=== PATIENT | female | born 1940 | race Caucasian/White ===

== ENCOUNTER 2023-07-18 14:37 | Inpatient (IN) ==
[2023-07-18] MEDS ORDERED: SODIUM CHLORIDE 0.9% 500 ML IV STA (14:42)
--- NOTE | 2023-07-18 14:42 | ED Triage Note ---
Date of Service July 18, 2023 Provider in Triage Author: Verónica Mathis History of Present Illness This patient was briefly evaluated while in triage. An abbreviated physical exam was performed. This patient is a 82-year-old Female who presents to the ED for evaluation of "she can't breathe." Daughter states symptoms started this morning. She had Covid-19 end of May. 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 Has been using these medications without difficulty. Did get RSV vaccine last Saturday. Pt. is visiting from [place]. About noon, started having worsening cough making it difficult to breathe and "get oxygen in." C/o chest heaviness and "inability to breathe" Physical Exam VITALS: Vitals are noted on the nurse's note and reviewed by myself. GENERAL: This is an 82 year old female, in no acute distress, nondiaphoretic, well-developed well-nourished. SKIN: No obvious rashes, edema, erythema HEAD: Normocephalic atraumatic. EYES: Conjunctivae without injection, sclerae without icterus. NECK: No JVD. LUNGS: No retractions or accessory muscle use. MUSCULOSKELETAL: Normal gait. NEURO: Patient was alert and oriented to person place and time. No focal neurological deficits. Initial orders for labs and / or imaging were placed and patient was placed in the waiting area until a bed is available. Please see further documentation for the full ED course. MDM / Impression Impression Impression: Hypoxia
[2023-07-18 15:16] LABS: Base Excess VBG 3.2 mEq/L; HCO3 VBG 31 mmol/L; Oxygen Saturation VBG < 60.0 %; PCO2 VBG 58 mmHg (38-50); PO2 VBG 28 mmHg; pH VBG 7.33 (7.36-7.41)
[2023-07-18 15:24] LABS: Basophils # (auto) 0.08 K/uL (0.00-0.20); Basophils % (auto) 0.8 %; Eosinophils # (auto) 0.57 K/uL (0.00-0.50); Eosinophils % (auto) 5.6 %; Hematocrit (blood only) 40.4 % (37.0-47.0); Hemoglobin 13.4 g/dl (12.0-16.0); Immature Granulocytes # (auto) 0.03 K/uL (0.01-0.20); Immature Granulocytes % (auto) 0.3 %; Lymphocytes # (auto) 1.72 K/uL (1.20-3.40); Lymphocytes % (auto) 16.8 %; Mean Corpuscular Hemoglobin 31.5 pg (25.0-34.0); Mean Corpuscular Hgb Conc 33.2 g/dL (32.0-36.0); Mean Corpuscular Volume 95.1 fL (80.0-100.0); Mean Platelet Volume 12.2 fL (9.4-12.4); Monocytes # (auto) 0.64 K/uL (0.11-0.59); Monocytes % (auto) 6.3 %; Neutrophils # (auto) 7.17 K/uL (1.40-6.50); Neutrophils % (auto) 70.2 %; Platelet Count 288 K/uL (130-400); RDW Coefficient of Variation 14.5 % (11.5-14.5); RDW Standard Deviation 51.1 fL (36.4-46.3); Red Blood Count 4.25 M/uL (4.20-5.40); White Blood Count 10.21 K/ul (4.8-10.8)
[2023-07-18 15:40] LABS: Alanine Aminotransferase 14 U/L (7-52); Albumin Globulin Ratio 1.2 (0.9-2); Albumin Level 4.2 gm/dl (3.4-5.0); Alkaline Phosphatase 91 U/L (34-104); Anion Gap 6 (3-11); Aspartate Aminotransferase 20 U/L (13-39); BUN Creatinine Ratio 29.6 (10-20); Bilirubin,Total 0.8 mg/dl (0.2-1.0); Blood Urea Nitrogen 21 mg/dl (6-23); Calcium 9.4 mg/dl (8.6-10.3); Carbon Dioxide 30 mmol/L (21-32); Chloride 105 mmol/L (98-107); Est GFR (African American) 90.7 ml/min; Est GFR (Non-African American) 78.2 ml/min; Globulin 3.4 gm/dl (2.5-4.0); Glucose 203 mg/dl (70-99(Fasting)); Magnesium 1.8 mg/dl (1.7-2.4); Sodium 141 mmol/L (136-145); Total Protein 7.6 gm/dl (6.0-8.3)
[2023-07-18 15:46] LABS: Troponin I High Sensitivity 5.2 pg/ml (0-14)
[2023-07-18] MEDS ORDERED: OPTIRAY 320 125ml IV ONE (15:51)
[2023-07-18 15:53] LABS: Partial Thromboplastin Time 27 Seconds (21-31); Prothrombin Time 10.5 Seconds (9.0-12.0)
[2023-07-18 16:07] LABS: Adenovirus PCR Not Detected (NotDetected); Bordetella parapertussis PCR Not Detected (NotDetected); Bordetella pertussis PCR Not Detected (NotDetected); Chlamydia pneumoniae PCR Not Detected (NotDetected); Coronavirus 229E PCR Not Detected (NotDetected); Coronavirus CoV-2 (COVID19)PCR Not Detected (NotDetected); Coronavirus HKU1 PCR Not Detected (NotDetected); Coronavirus NL63 PCR Not Detected (NotDetected); Coronavirus OC43PCR Not Detected (NotDetected); Human Metapneumovirus PCR Not Detected (NotDetected); Influenza A PCR Not Detected (NotDetected); Influenza B PCR Not Detected (NotDetected); Mycoplasma pneumoniae PCR Not Detected (NotDetected); Parainfluenza Virus 1 PCR Not Detected (NotDetected); Parainfluenza Virus 2 PCR Not Detected (NotDetected); Parainfluenza Virus 3 PCR Not Detected (NotDetected); Parainfluenza Virus 4 PCR Not Detected (NotDetected); Respiratory Syncytial VirusPCR Not Detected (NotDetected); Rhinovirus/Enterovirus PCR Not Detected (NotDetected)
--- NOTE | 2023-07-18 16:15 | CT Scan Report ---
CT ANGIOGRAM OF THE CHEST CLINICAL HISTORY: Dyspnea. Recent travel. COMPARISON STUDY: No priors. TECHNIQUE: Following the IV administration of 117 cc of Optiray 320, CT angiogram of the chest was pe rformed from the upper abdomen to the thoracic inlet utilizing the pulmonary embolus protocol. Images are reviewed in the axial, sagittal, and coronal planes. 3-D MIPS images are created and assessed. I V contrast was administered without complication. A dose lowering technique was utilized adhering to the principles of ALARA. The examination is compromised by motion artifact. CT DOSE: 800.32 mGy.cm FINDINGS: Thyroid: Imaged portions of the thyroid gland are normal in size and attenuation. Thoracic aorta: There is mild atherosclerotic calcification of the thoracic aorta, which is normal in caliber and demonstrates standard 3-vessel arch anatomy. No dissection is seen. Pulmonary vasculature: The pulmonary trunk is normal in caliber. There are no filling defects identif ied in main, lobar, or segmental pulmonary branches to suggest pulmonary embolus. Evaluation of the p eripheral branches is degraded by motion artifact. Heart: The heart is enlarged and without pericardial effusion. Lungs and pleural spaces: Evaluation of the lung parenchyma is significantly degraded by motion artif act. The trachea and central airways appear clear. There is no lobar consolidation or pleural effusio n. There is mild bronchiectasis in the right middle lobe with foci of mucus plugging. Foci of tree-in -bud nodularity with groundglass opacities are seen throughout the right lung, greatest in the upper and middle lobes. Milder similar-appearing tree-in-bud opacities are noted in the lingula. A 12 mm ov oid nodular focus in the right middle lobe on image #105 likely represents an impacted bronchus. A 5 mm nodular focus in the right upper lobe as seen on image #157. Mild parenchymal scarring/fibrosis is seen in the lingula. Mediastinum: There is no mediastinal lymphadenopathy. [place]: Clear. Axillae: There is no axillary lymphadenopathy. Upper abdomen: There is a small hiatal hernia. Partially visualized upper abdominal viscera is otherw ise within normal limits. Skeletal structures: The skeletal structures are osteopenic. No lytic or blastic bony lesions are see n. Degenerative change is noted in the shoulders and spine. IMPRESSION: 1. Motion compromised examination. 2. There is no evidence of pulmonary embolus in the main, lobar, or segmental pulmonary arteries. 3. Cardiomegaly 4. There is no lobar consolidation or pleural effusion. 5. There are numerous foci of tree-in-bud nodularity throughout the right lung as above with mild dwight undglass change. There are additional chronic appearing findings in the right middle lobe and lingula . The appearance favors a mild infectious/inflammatory pneumonitis. Some of this likely represents a chronic process such as atypical mycobacterial infection (GARRISON). Outpatient follow-up with pulmonology is recommended, as is a repeat chest CT in 3-4 months time to document resolution. 6. A 12 mm ovoid nodular structure in the right middle lobe likely represents an impacted bronchus. T his should also be recessed at follow-up. 7. Additional findings as above. ACT 112: Negative or not required by law. Electronically signed by: Luke Del Angel M.D. 07/18/2023 4:14 PM
[2023-07-18 16:30] LABS: Appearance Urine Clear (Clear); Bilirubin Urine Negative (Negative); Blood Urine Negative (Negative); Color Urine Yellow; Glucose Urine UA Negative (Negative); Ketones Urine Negative (Negative); Leukocyte Esterase Urine Negative (Negative); Nitrite Urine Negative (Negative); Protein Urine Negative (Negative); Specific Gravity Urine 1.025 (1.000-1.030); Urobilinogen Urine Negative (Negative); pH Urine 5.5 (4.5-7.5)
--- NOTE | 2023-07-18 16:38 | XRay Report ---
SINGLE VIEW CHEST CLINICAL HISTORY: Dyspnea FINDINGS: An AP, portable, upright chest radiograph is correlated with chest CT performed the same da y 07/18/2023. The heart is enlarged noting atherosclerotic calcification of the thoracic aorta. There is prominence of the pulmonary vasculature. There is elevation right hemidiaphragm with bibasilar op acities. No large pleural effusion or pneumothorax is seen. The skeletal structures are osteopenic. T he bony thorax is grossly intact. IMPRESSION: 1. Cardiomegaly with prominence of the pulmonary vasculature. Correlate clinically for evidence of mi ld fluid overload/congestive change. 2. Bibasilar airspace opacities as above. Pulmonary parenchymal findings were much better assessed on today's CT scan. ACT 112: Negative or not required by law. Electronically signed by: Luke Del Angel M.D. 07/18/2023 4:37 PM
[2023-07-18] MEDS ORDERED: methylPREDNISolone 125 MG/2 ML VIAL IV STA (16:40)
[2023-07-18] MEDS ORDERED: ALBUT/IPRATROP 3MG/0.5MG NEB 3 ML VIAL NEB STA ×2 (16:40→19:14)
--- NOTE | 2023-07-18 16:42 | Emergency Department Note ---
Impression & Plan Hypoxia ADMIT ED Provider Note HPI: History obtained from patient. The patient is a 82-year-old female who presents emergency department the chief complaint of cough and shortness of breath. Patient states that her symptoms developed very acutely today sometime around lunch. Patient developed some wheezing and cough. She attempted to use her albuterol inhaler at home without relief. Patient states she also developed some chest discomfort that seem to worsen with cough and is substernal in nature. On arrival here to the ED the patient is hypertensive, she was with borderline oxygen saturations in the low 90s and was placed on 2 L nasal cannula oxygen with good improvement. On my initial assessment the patient exhibits a harsh dry cough, states she does have some mild chest discomfort, she exhibits bilateral expiratory wheezing on my exam. ROS: - Per HPI Differential Diagnosis: Acute bacterial pneumonia, COPD exacerbation, acute bronchospasm, pulmonary embolism, aortic dissection, acute coronary syndrome, amongst other potential pathologies. *Outpatient medications and allergy history reviewed. PE: General: Alert HEENT: Normocephalic, trachea midline Eyes: Extraocular eye movement is intact, no scleral erythema Pulmonary: Clear to auscultation bilaterally, no wheezing Cardio: Regular rate and rhythm GI: Abdomen is soft to palpation : No suprapubic tenderness MSK: No evidence of trauma or malformation of the extremities, no edema Skin: No evidence of rash Neuro: Alert, no focal deficits Psychiatric: Cooperative INDEPENDENT INTERPRETATIONS: desk monitor: (As interpreted by myself): - An order was placed for continuous cardiac monitoring - Patient was noted to be in sinus rhythm with a rate of 108 EKG: (As interpreted by myself): Rate: 92 Rhythm: Normal sinus rhythm Intervals: Within normal limits ST changes: No ST elevation Time: 1502 Chest x-ray: (As interpreted by myself): -Bilateral airspace opacities Interventions provided in ED: -IV fluid bolus, IV hydralazine, DuoNeb breathing treatment, IV Solu-Medrol, IV ceftriaxone, IV azithromycin Medical Decision Making: IV was established and lab work obtained, patient was placed on clinical research monitor. Lab work shows no leukocytosis, hemoglobin is normal, platelet count is normal, venous blood gas was obtained and shows acidotic pH is 7.33, there is slight elevation in pCO2 of 58. CMP does not show any critical findings, troponin is negative, BNP is within normal limits. Chest x-ray shows bilateral airspace opacities, CT angiography of the chest was obtained from triage that shows no evidence of any pulmonary embolism, there is an apparent infectious process in the right middle lobe of the lung. Blood cultures were ordered, patient was given IV ceftriaxone and IV azithromycin here in the ED. She was noted to be hypoxic at various times down to 88% on room air and therefore was placed on nasal cannula oxygen with good improvement. Patient has been hypertensive here in the ED at times well above 200 systolic and therefore was given a dose of IV hydralazine with improvement into the 170s systolic. On my reassessment following DuoNeb breathing treatment and IV Solu- Medrol the patient's wheezing is improved from previous. Given the patient's hypoxia, case was discussed with the on-call hospitalist service, Flaco Ferreira PA-C, as well as Dr. Lala, and the patient was placed for admission in stable condition. Consultants/Discussions held with other healthcare providers: -Hospitalist, Dr. Lala Disposition discussion held by myself with: -Patient and daughter is at the bedside * CRITICAL CARE TIME: ( 43 ) minutes -Stabilization of hypoxia with oxygen saturation at 88% on room air requiring supplemental oxygen for correction, time spent at the bedside, interpretation of EKG and diagnostic studies, discussion with other healthcare providers and arrangement of admission Diagnosis: 1. Hypoxia, acute 2. Acute bronchospasm 3. Hypercarbic respiratory failure with hypoxia 4. Pneumonia, right middle lobe, acute 5. Hypertensive urgency, acute Disposition: Admission Beau Oliveira DO Emergency Medicine Past Med/Surg History Social History Smoking Status: Never smoker Preferred Language: Zimbabwean Feels Safe at Home: Yes Allergies Allergies Allergy/AdvReac Type Severity Reaction Status Date / Time piroxicam Allergy Severe Angioedema Unverified 07/18/23 17:59 acetaminophen [From Percocet] AdvReac Severe Hallucinati Unverified 07/18/23 17:59 ng/Loopy oxycodone [From Percocet] AdvReac Severe Hallucinati Unverified 07/18/23 17:59 ng/Loopy Home Meds Home Medications Medication Instructions Recorded Confirmed atorvastatin 10 mg tablet 10 mg PO QAM 07/18/23 07/18/23 cholecalciferol (vitamin D3) 50 50 mcg PO QAM 07/18/23 07/18/23 mcg (2,000 unit) tablet (Vitamin D3) coenzyme Q10 100 mg capsule (Co 100 mg PO QAM 07/18/23 07/18/23 Q-10) insulin NPH isoph U-100 human 100 0 unit subcut BID 07/18/23 07/18/23 unit/mL subcutaneous suspension (Humulin N NPH U-100 Insulin (isophane susp)) levothyroxine 88 mcg tablet 88 mcg PO HS 07/18/23 07/18/23 losartan 25 mg tablet 25 mg PO QAM 07/18/23 07/18/23 modafinil 200 mg tablet 200 mg PO DAILY PRN To stay awake 07/18/23 07/18/23 Results & Data (ED) Vital Signs Vital Signs - 24 hr 07/18/23 14:40 07/18/23 16:12 07/18/23 16:13 Temperature 36.7 C Temperature Source Temporal Artery Scan Pulse Rate 96 H 108 H 108 H Pulse Rate from SpO2 Sensor 107 H Respiratory Rate 22 34 H Respiratory Effort / Characteristics Non-Labored Spontaneous Respiratory Depth Normal Blood Pressure 195/96 H Blood Pressure [Left Arm] Blood Pressure Mean 129 Blood Pressure Mean [Left Arm] Blood Pressure Position Sitting Pulse Oximetry 91 93 Oxygen Delivery Method Room Air Oxygen Flow Rate Sepsis Recent Fever Within 48 Hours No Sepsis New/Unexplained Change in Mental Status No Sepsis Action Taken by Nursing No Action Required Oxygen Flow Rate - Titration Pulse Oximetry Post Tiitration 07/18/23 16:15 07/18/23 16:15 07/18/23 16:15 Temperature Temperature Source Pulse Rate 102 H 103 H Pulse Rate from SpO2 Sensor 104 H Respiratory Rate 15 23 Respiratory Effort / Characteristics Respiratory Depth Blood Pressure 208/121 H Blood Pressure [Left Arm] Blood Pressure Mean 157 Blood Pressure Mean [Left Arm] Blood Pressure Position Pulse Oximetry 95 93 Oxygen Delivery Method Nasal Cannula Oxygen Flow Rate 2 Sepsis Recent Fever Within 48 Hours Sepsis New/Unexplained Change in Mental Status Sepsis Action Taken by Nursing Oxygen Flow Rate - Titration Pulse Oximetry Post Tiitration 07/18/23 16:20 07/18/23 16:30 07/18/23 16:30 Temperature Temperature Source Pulse Rate 102 H 101 H Pulse Rate from SpO2 Sensor 102 H 101 H Respiratory Rate 35 H 39 H Respiratory Effort / Characteristics Respiratory Depth Blood Pressure Blood Pressure [Left Arm] 195/116 H Blood Pressure Mean Blood Pressure Mean [Left Arm] 142 Blood Pressure Position Pulse Oximetry 94 92 92 Oxygen Delivery Method Nasal Cannula Oxygen Flow Rate 2 Sepsis Recent Fever Within 48 Hours Sepsis New/Unexplained Change in Mental Status Sepsis Action Taken by Nursing Oxygen Flow Rate - Titration Pulse Oximetry Post Tiitration 07/18/23 16:30 07/18/23 16:40 07/18/23 16:45 Temperature Temperature Source Pulse Rate 105 H 102 H Pulse Rate from SpO2 Sensor 105 H 102 H Respiratory Rate 27 H 34 H Respiratory Effort / Characteristics Respiratory Depth Blood Pressure 195/116 H Blood Pressure [Left Arm] Blood Pressure Mean 138 Blood Pressure Mean [Left Arm] Blood Pressure Position Pulse Oximetry 93 91 Oxygen Delivery Method Nasal Cannula Oxygen Flow Rate 2 Sepsis Recent Fever Within 48 Hours Sepsis New/Unexplained Change in Mental Status Sepsis Action Taken by Nursing Oxygen Flow Rate - Titration Pulse Oximetry Post Tiitration 07/18/23 16:45 07/18/23 16:50 07/18/23 17:00 Temperature Temperature Source Pulse Rate 95 H Pulse Rate from SpO2 Sensor 104 H 95 H Respiratory Rate 30 H Respiratory Effort / Characteristics Respiratory Depth Blood Pressure 214/131 H Blood Pressure [Left Arm] Blood Pressure Mean 149 Blood Pressure Mean [Left Arm] Blood Pressure Position Pulse Oximetry 88 L 97 Oxygen Delivery Method Room Air Nebulizer Oxygen Flow Rate Sepsis Recent Fever Within 48 Hours Sepsis New/Unexplained Change in Mental Status Sepsis Action Taken by Nursing Oxygen Flow Rate - Titration Pulse Oximetry Post Tiitration 07/18/23 17:10 07/18/23 17:10 Temperature Temperature Source Pulse Rate 101 H Pulse Rate from SpO2 Sensor 100 H Respiratory Rate 28 H Respiratory Effort / Characteristics Respiratory Depth Blood Pressure Blood Pressure [Left Arm] Blood Pressure Mean Blood Pressure Mean [Left Arm] Blood Pressure Position Pulse Oximetry 88 L 90 Oxygen Delivery Method Nasal Cannula Nasal Cannula Oxygen Flow Rate 0 2 Sepsis Recent Fever Within 48 Hours Sepsis New/Unexplained Change in Mental Status Sepsis Action Taken by Nursing Oxygen Flow Rate - Titration 2 Pulse Oximetry Post Tiitration 92 Laboratory Data 07/18/23 14:53 07/18/23 14:53 Lab Results 07/18/23 07/18/23 07/18/23 Range/Units 14:53 15:02 15:08 WBC 10.21 (4.8-10.8) K/ul RBC 4.25 (4.20-5.40) M/uL Hgb 13.4 (12.0-16.0) g/dl Hct 40.4 (37.0-47.0) % MCV 95.1 (80.0-100.0) fL MCH 31.5 (25.0-34.0) pg MCHC 33.2 (32.0-36.0) g/dL RDW Std Deviation 51.1 H (36.4-46.3) fL RDW Coeff of Norma 14.5 (11.5-14.5) % Plt Count 288 (130-400) K/uL MPV 12.2 (9.4-12.4) fL Immature Gran % (Auto) 0.3 % Neut % (Auto) 70.2 % Lymph % (Auto) 16.8 % Forrest % (Auto) 6.3 % Eos % (Auto) 5.6 % Baso % (Auto) 0.8 % Neut # (Auto) 7.17 H (1.40-6.50) K/uL Lymph # (Auto) 1.72 (1.20-3.40) K/uL Forrest # (Auto) 0.64 H (0.11-0.59) K/uL Eos # (Auto) 0.57 H (0.00-0.50) K/uL Baso # (Auto) 0.08 (0.00-0.20) K/uL Immature Gran # (Auto) 0.03 (0.01-0.20) K/uL PT 10.5 (9.0-12.0) Seconds INR 1.0 (0.9-1.1) APTT 27 (21-31) Seconds PTT Ratio 1.0 VBG pH 7.33 L (7.36-7.41) VBG pCO2 58 H (38-50) mmHg VBG pO2 28 mmHg VBG HCO3 31 mmol/L VBG O2 Saturation < 60.0 % VBG Base Excess 3.2 mEq/L Sodium 141 (136-145) mmol/L Potassium 4.0 (3.5-5.1) mmol/L Chloride 105 (98-107) mmol/L Carbon Dioxide 30 (21-32) mmol/L Anion Gap 6 (3-11) BUN 21 (6-23) mg/dl Creatinine 0.71 (0.6-1.2) mg/dl Est Cr Clr Drug Dosing Not Reportable Est GFR ( Amer) 90.7 ml/min Est GFR (Non-Af Amer) 78.2 ml/min BUN/Creatinine Ratio 29.6 H (10-20) Glucose 203 H (70-99(Fasting)) mg/dl Lactate 1.3 (0.4-2.0) mmol/L Calcium 9.4 (8.6-10.3) mg/dl Magnesium 1.8 (1.7-2.4) mg/dl Total Bilirubin 0.8 (0.2-1.0) mg/dl AST 20 (13-39) U/L ALT 14 (7-52) U/L Alkaline Phosphatase 91 (34-104) U/L Troponin I High Sens 5.2 (0-14) pg/ml B-Natriuretic Peptide 28 (0-100) pg/ml Total Protein 7.6 (6.0-8.3) gm/dl Albumin 4.2 (3.4-5.0) gm/dl Globulin 3.4 (2.5-4.0) gm/dl Albumin/Globulin Ratio 1.2 (0.9-2) Urine Color Urine Appearance (Clear) Urine pH (4.5-7.5) Ur Specific Paradis (1.000-1.030) Urine Protein (Negative) Urine Glucose (UA) (Negative) Urine Ketones (Negative) Urine Blood (Negative) Urine Nitrite (Negative) Urine Bilirubin (Negative) Urine Urobilinogen (Negative) Ur Leukocyte Esterase (Negative) Adenovirus (PCR) Not Detected (NotDetected) B. pertussis DNA (PCR) Not Detected (NotDetected) B.parapertussis DNA PCR Not Detected (NotDetected) C. pneumoniae DNA (PCR) Not Detected (NotDetected) Coronavirus OC43 (PCR) Not Detected (NotDetected) Coronavirus HKU1 (PCR) Not Detected (NotDetected) Coronavirus 229E (PCR) Not Detected (NotDetected) SARS-CoV-2 (PCR) Not Detected (NotDetected) Coronavirus NL63 (PCR) Not Detected (NotDetected) Human Metapneumovir PCR Not Detected (NotDetected) Influenza Type A (PCR) Not Detected (NotDetected) Influenza Type B (PCR) Not Detected (NotDetected) M. pneumoniae (PCR) Not Detected (NotDetected) Parainfluenza 1 (PCR) Not Detected (NotDetected) Parainfluenza 2 (PCR) Not Detected (NotDetected) Parainfluenza 3 (PCR) Not Detected (NotDetected) Parainfluenza 4 (PCR) Not Detected (NotDetected) RSV (PCR) Not Detected (NotDetected) Entero/Rhino (PCR) Not Detected (NotDetected) 07/18/23 Range/Units Unknown WBC (4.8-10.8) K/ul RBC (4.20-5.40) M/uL Hgb (12.0-16.0) g/dl Hct (37.0-47.0) % MCV (80.0-100.0) fL MCH (25.0-34.0) pg MCHC (32.0-36.0) g/dL RDW Std Deviation (36.4-46.3) fL RDW Coeff of Norma (11.5-14.5) % Plt Count (130-400) K/uL MPV (9.4-12.4) fL Immature Gran % (Auto) % Neut % (Auto) % Lymph % (Auto) % Forrest % (Auto) % Eos % (Auto) % Baso % (Auto) % Neut # (Auto) (1.40-6.50) K/uL Lymph # (Auto) (1.20-3.40) K/uL Forrest # (Auto) (0.11-0.59) K/uL Eos # (Auto) (0.00-0.50) K/uL Baso # (Auto) (0.00-0.20) K/uL Immature Gran # (Auto) (0.01-0.20) K/uL PT (9.0-12.0) Seconds INR (0.9-1.1) APTT (21-31) Seconds PTT Ratio VBG pH (7.36-7.41) VBG pCO2 (38-50) mmHg VBG pO2 mmHg VBG HCO3 mmol/L VBG O2 Saturation % VBG Base Excess mEq/L Sodium (136-145) mmol/L Potassium (3.5-5.1) mmol/L Chloride (98-107) mmol/L Carbon Dioxide (21-32) mmol/L Anion Gap (3-11) BUN (6-23) mg/dl Creatinine (0.6-1.2) mg/dl Est Cr Clr Drug Dosing Est GFR ( Amer) ml/min Est GFR (Non-Af Amer) ml/min BUN/Creatinine Ratio (10-20) Glucose (70-99(Fasting)) mg/dl Lactate (0.4-2.0) mmol/L Calcium (8.6-10.3) mg/dl Magnesium (1.7-2.4) mg/dl Total Bilirubin (0.2-1.0) mg/dl AST (13-39) U/L ALT (7-52) U/L Alkaline Phosphatase (34-104) U/L Troponin I High Sens (0-14) pg/ml B-Natriuretic Peptide (0-100) pg/ml Total Protein (6.0-8.3) gm/dl Albumin (3.4-5.0) gm/dl Globulin (2.5-4.0) gm/dl Albumin/Globulin Ratio (0.9-2) Urine Color Yellow Urine Appearance Clear (Clear) Urine pH 5.5 (4.5-7.5) Ur Specific Paradis 1.025 (1.000-1.030) Urine Protein Negative (Negative) Urine Glucose (UA) Negative (Negative) Urine Ketones Negative (Negative) Urine Blood Negative (Negative) Urine Nitrite Negative (Negative) Urine Bilirubin Negative (Negative) Urine Urobilinogen Negative (Negative) Ur Leukocyte Esterase Negative (Negative) Adenovirus (PCR) (NotDetected) B. pertussis DNA (PCR) (NotDetected) B.parapertussis DNA PCR (NotDetected) C. pneumoniae DNA (PCR) (NotDetected) Coronavirus OC43 (PCR) (NotDetected) Coronavirus HKU1 (PCR) (NotDetected) Coronavirus 229E (PCR) (NotDetected) SARS-CoV-2 (PCR) (NotDetected) Coronavirus NL63 (PCR) (NotDetected) Human Metapneumovir PCR (NotDetected) Influenza Type A (PCR) (NotDetected) Influenza Type B (PCR) (NotDetected) M. pneumoniae (PCR) (NotDetected) Parainfluenza 1 (PCR) (NotDetected) Parainfluenza 2 (PCR) (NotDetected) Parainfluenza 3 (PCR) (NotDetected) Parainfluenza 4 (PCR) (NotDetected) RSV (PCR) (NotDetected) Entero/Rhino (PCR) (NotDetected) Administered Medications Discontinued Medications Albuterol (Albut/Ipratrop 3mg/0.5mg Neb 3 Ml Vial) 3 ml NEB NOW STA; Protocol Stop: 07/18/23 16:41 Last Admin: 07/18/23 16:51 Dose: 3 ml Documented By: ACC Hydralazine HCl (Hydralazine Hcl 20 Mg/Ml Vial) 10 mg IV NOW STA Stop: 07/18/23 17:19 Last Admin: 07/18/23 17:28 Dose: 10 mg Documented By: LKD Sodium Chloride (Nss) 500 mls @ 999 mls/hr IV .Q31M STA Stop: 07/18/23 15:12 Last Infusion: 07/18/23 15:35 Dose: Infused Documented By: Admin: 07/18/23 15:00 Dose: 999 mls/hr Documented By: LCD Ceftriaxone Sodium (Rocephin) 2,000 mg in 50 mls @ 100 mls/hr IV NOW STA Stop: 07/18/23 17:49 Last Infusion: 07/18/23 18:41 Dose: Infused Documented By: Admin: 07/18/23 17:29 Dose: 100 mls/hr Documented By: LKD Azithromycin 500 mg/ Dextrose 255 mls @ 125 mls/hr IV ONE ONE Stop: 07/18/23 19:22 Last Admin: 07/18/23 18:14 Dose: 125 mls/hr Documented By: ACC Ioversol (Optiray 320 125ml) 117 ml IV ONCE ONE Stop: 07/18/23 15:52 Last Admin: 07/18/23 15:51 Dose: 117 ml Documented By: ARAM Methylprednisolone (Methylprednisolone 125 Mg/2 Ml Vial) 125 mg IV NOW STA Stop: 07/18/23 16:41 Last Admin: 07/18/23 16:51 Dose: 125 mg Documented By: ACC Imaging Data Radiologist's Impression: Chest CTA 07/18/23 14:42 CT ANGIOGRAM OF THE CHEST CLINICAL HISTORY: Dyspnea. Recent travel. COMPARISON STUDY: No priors. TECHNIQUE: Following the IV administration of 117 cc of Optiray 320, CT angiogram of the chest was performed from the upper abdomen to the thoracic inlet utilizing the pulmonary embolus protocol. Images are reviewed in the axial, sagittal, and coronal planes. 3-D MIPS images are created and assessed. IV contrast was administered without complication. A dose lowering technique was utilized adhering to the principles of ALARA. The examination is compromised by motion artifact. CT DOSE: 800.32 mGy.cm FINDINGS: Thyroid: Imaged portions of the thyroid gland are normal in size and attenuation. Thoracic aorta: There is mild atherosclerotic calcification of the thoracic aorta, which is normal in caliber and demonstrates standard 3-vessel arch anatomy. No dissection is seen. Pulmonary vasculature: The pulmonary trunk is normal in caliber. There are no filling defects identified in main, lobar, or segmental pulmonary branches to suggest pulmonary embolus. Evaluation of the peripheral branches is degraded by motion artifact. Heart: The heart is enlarged and without pericardial effusion. Lungs and pleural spaces: Evaluation of the lung parenchyma is significantly degraded by motion artifact. The trachea and central airways appear clear. There is no lobar consolidation or pleural effusion. There is mild bronchiectasis in the right middle lobe with foci of mucus plugging. Foci of tree-in-bud nodularity with groundglass opacities are seen throughout the right lung, greatest in the upper and middle lobes. Milder similar-appearing tree-in-bud opacities are noted in the lingula. A 12 mm ovoid nodular focus in the right middle lobe on image #105 likely represents an impacted bronchus. A 5 mm nodular focus in the right upper lobe as seen on image #157. Mild parenchymal scarring/fibrosis is seen in the lingula. Mediastinum: There is no mediastinal lymphadenopathy. [place]: Clear. Axillae: There is no axillary lymphadenopathy. Upper abdomen: There is a small hiatal hernia. Partially visualized upper abdominal viscera is otherwise within normal limits. Skeletal structures: The skeletal structures are osteopenic. No lytic or blastic bony lesions are seen. Degenerative change is noted in the shoulders and spine. IMPRESSION: 1. Motion compromised examination. 2. There is no evidence of pulmonary embolus in the main, lobar, or segmental pulmonary arteries. 3. Cardiomegaly 4. There is no lobar consolidation or pleural effusion. 5. There are numerous foci of tree-in-bud nodularity throughout the right lung as above with mild groundglass change. There are additional chronic appearing findings in the right middle lobe and lingula. The appearance favors a mild infectious/inflammatory pneumonitis. Some of this likely represents a chronic process such as atypical mycobacterial infection (GARRISON). Outpatient follow-up with pulmonology is recommended, as is a repeat chest CT in 3-4 months time to document resolution. 6. A 12 mm ovoid nodular structure in the right middle lobe likely represents an impacted bronchus. This should also be recessed at follow-up. 7. Additional findings as above. ACT 112: Negative or not required by law. Electronically signed by: Luke Del Angel M.D. 07/18/2023 4:14 PM Chest X-Ray 07/18/23 14:42 SINGLE VIEW CHEST CLINICAL HISTORY: Dyspnea FINDINGS: An AP, portable, upright chest radiograph is correlated with chest CT performed the same day 07/18/2023. The heart is enlarged noting atherosclerotic calcification of the thoracic aorta. There is prominence of the pulmonary vasculature. There is elevation right hemidiaphragm with bibasilar opacities. No large pleural effusion or pneumothorax is seen. The skeletal structures are osteopenic. The bony thorax is grossly intact. IMPRESSION: 1. Cardiomegaly with prominence of the pulmonary vasculature. Correlate clinically for evidence of mild fluid overload/congestive change. 2. Bibasilar airspace opacities as above. Pulmonary parenchymal findings were much better assessed on today's CT scan. ACT 112: Negative or not required by law. Electronically signed by: Luke Del Angel M.D. 07/18/2023 4:37 PM Discharge Plan Visit Data Chief Complaint: Shortness of Breath/Dyspnea Stated Complaint: SOB ED Provider: Beau Oliveira Discharge Problem: Hypoxia Forms Stand Alone Forms: My [employer] Prescriptions Prescriptions: No Action atorvastatin 10 mg tablet 10 mg PO QAM levothyroxine 88 mcg tablet 88 mcg PO HS modafinil 200 mg tablet 200 mg PO DAILY PRN (Reason: To stay awake) losartan 25 mg tablet 25 mg PO QAM Humulin N NPH U-100 Insulin 100 unit/mL suspension 0 unit SUBCUT BID Rx Instructions: Inject 13 units in the morning and 7 units at bedtime coenzyme Q10 [Co Q-10] 100 mg Capsule 100 mg PO QAM cholecalciferol (vitamin D3) [Vitamin D3] 50 mcg (2,000 unit) Tablet 50 mcg PO QAM Referrals Referrals: PCP,NO [Primary Care Provider] -
--- NOTE | 2023-07-18 17:00 | Electrocardiogram Report ---
Test Reason : Blood Pressure : / mmHG Vent. Rate : 092 BPM Atrial Rate : 092 BPM P-R Int : 146 ms QRS Dur : 086 ms QT Int : 354 ms P-R-T Axes : 064 -35 096 degrees QTc Int : 437 ms Normal sinus rhythm Left axis deviation Possible Old Septal infarct Abnormal ECG No previous ECGs available Confirmed by Sinan Brown ([id number]) on 07/18/2023 4:59:46 PM Referred By: Confirmed By:Sinan Brown
[2023-07-18] MEDS ORDERED: hydrALAZINE HCL 20 MG/ML VIAL IV STA (17:18)
[2023-07-18] MEDS ORDERED: AZITHROMYCIN 500 MG in DEXTROSE 5% 250 ML IV ONE (17:20)
[2023-07-18] MEDS ORDERED: cefTRIAXone SODIUM 2,000 MG/50 ML BAG IV STA (17:20)
--- NOTE | 2023-07-18 18:43 | History & Physical Report ---
Date of Service July 18, 2023 Assessment & Plan (1) Acute respiratory failure with hypoxia: Plan: -Admit to the PCU on tele and pulse oximetry -Currently hemodynamically stable and stable on 2L NC -Presented to the ED with acute onset of non-productive cough, significant wheezing, and respiratory distress -Noted to be hypoxic at 85% on RA and placed on 2L NC in the ED -CTA of the chest is negative for PE, does show her known bronchiectasis in the right lung without cavitary lesions but a 12mm ovoid nodule -Patient given an albuterol treatment, 125 mg IV Solu-medrol, a dose of Ceftriaxone, and a dose of azithromycin in the ED -States she had significant improvement with the albuterol treatment and steroids -Based on the history and imaging today it appears that the patient experienced an aspiration event while sleeping or shortly after causing mucus plugging in the right mid bronchus -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 >Does follow with a Dumpster Driver and ID in [place] >Per the last Pulmonology note from March 2023, ID and the patient elected to hold off on treatment as she had been relatively asymptomatic up to this point -Will continue with Unasyn and Azithromycin at this time -Continue to treat as a COPD exacerbation as well with 60 mg IV Solu-Medrol BID, will give 2gm IV mag-sulfate on admission to assist with bronchospasm -Will give a DuoNeb treatment now as she had improvement with the initial albuterol treatment in the ED, then continue scheduled moving forward -Will start chest vest therapy QID with hypertonic nebulizers to help her loosen her mucus plug -Will add BID budesonide and formoterol nebs as well -Incentive spirometry, flutter therapy, prn O2 to keep SpO2 between 89-92% -Follow sputum culture ordered in the ED -Will consult Pulmonology to follow while admitted, appreciate their assistance -SQ lovenox for DVT PPX -HH/DMII diet -AM CBC, BMP, Mag (2) Mycobacterium avium complex: Plan: -See Acute Hypoxic respiratory -Secure images of last Pulmonology Clinic Visit was printed and placed in the patient's physial chart -Patient also has her iPad with her and can access her EMR as needed (3) Chest pain: Plan: -Patient initially presented with substernal chest pain while coughing -No acute ST segment or T-wave changes noted on ECG, high sen trop WNL -Patient's pain has resolved after initial treatment in the ED -Likely musculoskeletal due to her cough -Will start with prn tylenol (4) COPD (chronic obstructive pulmonary disease): Plan: -See Acute hypoxic respiratory failure (5) DMII (diabetes mellitus, type 2): Plan: -Normally on NPH, will hold -Monitor BSG ACHS, goal is 110-140 -Will likely be hyperglycemic with systemic steroids -Will start 10 units lantus BID, CF 50, and CR 15 for now -HH/DMII diet -Pharmacy glycemic consuly placed (6) Hypertension: Plan: -Initially hypertension with systolic BP in the 200's on arrival -BP now stable S/P 10 mg hydralazine in the ED -Likely due to her distress for acute respiratory failure on arrival, she confirms she took her am losartan today -Will keep on PCU overnight in case IV antihypertensives are required (7) RADHA (obstructive sleep apnea): Plan: -HS CPAP ordered -Patient's family will bring in her mask and machine tonight Plan The patient was discussed with Dr. Lala at the time of the admission History of Present Illness Chief Complaint: -Progressive cough and SOB Primary Care Provider: NO PCP Shante is an 82 year old female who lives in [place] with a PMH significant for Bronchiectasis, S/P bronchoscopy in 2019 with cultures positive for GARRISON-Scrofulaceum (Followed By ID and not started on MAC treatment due to mild symptoms), COPD, DMII, hypothyroidism, hypertension hyperlipidemia, and Narcolepsy who presented to the [facility] ED on 07/18 with complaints of a progressive cough with worsening SOB. In the ED she was noted to be hypertensive at 214/131 and hypoxic at 88% on RA but otherwise stable. Labs were significant for a neutrophile count of 7.17 VBG pH of 7.33 with pC02 of 58, and pO2 of 28, and negative full respiratory biofire. Chest xray was read as "1. Cardiomegaly with prominence of the pulmonary vasculature. Correlate clinically for evidence of mild fluid overload/congestive change. 2. Bibasilar airspace opacities as above. Pulmonary parenchymal findings were much better assessed on today's CT scan. CTA of the chest was read as "1. Motion compromised examination. 2. There is no evidence of pulmonary embolus in the main, lobar, or segmental pulmonary arteries. 3. Cardiomegaly 4. There is no lobar consolidation or pleural effusion. 5. There are numerous foci of tree-in-bud nodularity throughout the right lung as above with mild groundglass change. There are additional chronic appearing findings in the right middle lobe and lingula. The appearance favors a mild infectious/inflammatory pneumonitis. Some of this likely represents a chronic process such as atypical mycobacterial infection (GARRISON). Outpatient follow-up with pulmonology is recommended, as is a repeat chest CT in 3-4 months time to document resolution. 6. A 12 mm ovoid nodular structure in the right middle lobe likely represents an impacted bronchus. This should also be recessed at follow-up.". Prior to admission the patient was stabilized on 2L NC and given a dose of ceftriaxone, azithromycin, 125 mg IV Solu-Medrol, 500 mL NSS, and 10 mg IV hydralazine. At the time of the exam the patient was sitting in bed in no acute distress. When attempting to speak the patient has a significant cough and wheezing, the majority of the history was obtained from her 2 daughters sitting bedside and her EMR niranjan. They state that the patient had Covid 19 in May but had minimal respiratory symptoms and did not require hospitalization. She did complete a course of Paxlovid when she was found to be positive. She does follow with a Dumpster Driver in [place] and follows up yearly if not sooner. Regarding her COPD diagnosis; it is in her Pulmonology clinic notes. The patient was never a smoker herself but did have significant second hand smoke exposure as her father and brother were smokers. She and her one daughter flew into [place] 3 days ago, she had been feeling well. They state that she had a slight "tickle" in her throat but was without significant respiratory symptoms. She woke this am feeling well and was able to eat breakfast without issue. She took a nap in the late morning and woke around noon. Shortly after waking she experienced significant respiratory distress with wheezing, spastic cough, and inability to complete full sentences. These acute symptoms prompted ED evaluation. The patient did experience substernal chest pain when her cough was severe, this has resolved since receiving treatment in the ED. She does not use oxygen at home but does use HS CPAP. She feels somewhat improved compared to arrival but nowhere near her baseline. She denies recent travel outside the us or other sick contacts. She also denies recent fever, hemoptysis, abd pain, nausea, vomiting, diarrhea, dysuria, hematuria, melena, LE swelling, and recent trauma. She is a full code and would want her daughter to make medical decisions for her if she cannot make them herself. Please refer to Dr. Lala's attestation for any changes to the treatment plan Allergies Allergy/AdvReac Type Severity Reaction Status Date / Time piroxicam Allergy Severe Angioedema Unverified 07/18/23 17:59 acetaminophen [From Percocet] AdvReac Severe Hallucinati Unverified 07/18/23 17:59 ng/Loopy oxycodone [From Percocet] AdvReac Severe Hallucinati Unverified 07/18/23 17:59 ng/Loopy Home Medications Medication Instructions Recorded Confirmed Type atorvastatin 10 mg tablet 10 mg PO QAM 07/18/23 07/18/23 History cholecalciferol (vitamin D3) 50 50 mcg PO QAM 07/18/23 07/18/23 History mcg (2,000 unit) tablet (Vitamin D3) coenzyme Q10 100 mg capsule (Co 100 mg PO QAM 07/18/23 07/18/23 History Q-10) insulin NPH isoph U-100 human 100 0 unit subcut BID 07/18/23 07/18/23 History unit/mL subcutaneous suspension (Humulin N NPH U-100 Insulin (isophane susp)) levothyroxine 88 mcg tablet 88 mcg PO HS 07/18/23 07/18/23 History losartan 25 mg tablet 25 mg PO QAM 07/18/23 07/18/23 History modafinil 200 mg tablet 200 mg PO DAILY PRN To stay awake 07/18/23 07/18/23 History Past Med/Surg History Social History Smoking Status: Never smoker Hx Alcohol Use: No Hx Substance Use: No Preferred Language: Stateless Communication Ability: Effective Dice Person Required: No Beliefs That Will Affect Care: None Current Living Situation: Spouse Other Information That Helps Us Care for You: No Feels Safe at Home: Yes Safety Concerns: Feels Safe At This Time Assistive Devices: CPAP and Glasses Assistive Devices Comment: cane Physical Exam Physical Exam: Physical Exam: General: In no acute distress, stated age, ill appearing but non-toxic HEENT: Normocephalic, atraumatic, no scleral icterus, pupils around round, symmetrical, and reactive to light, moist mucus membranes, trachea midline, no thyromegaly Chest/Pulm: No respiratory distress at rest but with significant cough and wheezing when trying to speak, symmetrical chest expansion, expiratory wheezing noted througout Cardiac: RRR, no murmurs noted Abdomen: Negative for ascites and bruising, normoactive bowel sounds, soft, non-tender to palpation throughout Musculoskeletal: Symmetrical and without signs of acute trauma, upper and lower extremities with full ROM, no atrophy, spasticity, or flaccidity Extremities: Radial, dorsalis pedis, and posterior tibial pulses are intact and symmetrical, no edema noted in the BL LE's Skin: Warm, dry, no rashes , lesions, or scars noted Neuro: Alert and oriented to person, place, month, year, and president, no focal defects, no tremors noted Psych: No acute distress, calm and cooperative during the exam Results & Data Results & Data Vital Signs (Past 12 Hours) Vital Signs Temp Pulse Resp BP BP Pulse Ox O2 Del Method 07/18/23 17:10 101 H 28 H 90 Nasal Cannula 07/18/23 17:10 88 L Nasal Cannula 07/18/23 17:00 95 H 30 H 97 Nebulizer 07/18/23 16:50 88 L Room Air 07/18/23 16:45 214/131 H 07/18/23 16:45 102 H 34 H 91 07/18/23 16:40 105 H 27 H 93 Nasal Cannula 07/18/23 16:30 195/116 H 07/18/23 16:30 101 H 39 H 92 07/18/23 16:30 195/116 H 92 Nasal Cannula 07/18/23 16:20 102 H 35 H 94 07/18/23 16:15 208/121 H 07/18/23 16:15 103 H 23 93 07/18/23 16:15 102 H 15 95 Nasal Cannula 07/18/23 16:13 108 H 34 H 93 07/18/23 16:12 108 H 07/18/23 14:40 36.7 C 96 H 22 195/96 H 91 Room Air O2 Flow Rate 07/18/23 17:10 2 07/18/23 17:10 0 07/18/23 17:00 07/18/23 16:50 07/18/23 16:45 07/18/23 16:45 07/18/23 16:40 2 07/18/23 16:30 07/18/23 16:30 07/18/23 16:30 2 07/18/23 16:20 07/18/23 16:15 07/18/23 16:15 07/18/23 16:15 2 07/18/23 16:13 07/18/23 16:12 07/18/23 14:40 Laboratory Results Abnormal lab results 07/18/23 07/18/23 Range/Units 14:53 15:02 RDW Std Deviation 51.1 H (36.4-46.3) fL Neut # (Auto) 7.17 H (1.40-6.50) K/uL Desha # (Auto) 0.64 H (0.11-0.59) K/uL Eos # (Auto) 0.57 H (0.00-0.50) K/uL VBG pH 7.33 L (7.36-7.41) VBG pCO2 58 H (38-50) mmHg BUN/Creatinine Ratio 29.6 H (10-20) Glucose 203 H (70-99(Fasting)) mg/dl Diagnostic Findings Chest CTA 07/18/23 14:42 CT ANGIOGRAM OF THE CHEST CLINICAL HISTORY: Dyspnea. Recent travel. COMPARISON STUDY: No priors. TECHNIQUE: Following the IV administration of 117 cc of Optiray 320, CT angiogram of the chest was performed from the upper abdomen to the thoracic inlet utilizing the pulmonary embolus protocol. Images are reviewed in the axial, sagittal, and coronal planes. 3-D MIPS images are created and assessed. IV contrast was administered without complication. A dose lowering technique was utilized adhering to the principles of ALARA. The examination is compromised by motion artifact. CT DOSE: 800.32 mGy.cm FINDINGS: Thyroid: Imaged portions of the thyroid gland are normal in size and attenuation. Thoracic aorta: There is mild atherosclerotic calcification of the thoracic aorta, which is normal in caliber and demonstrates standard 3-vessel arch anatomy. No dissection is seen. Pulmonary vasculature: The pulmonary trunk is normal in caliber. There are no filling defects identified in main, lobar, or segmental pulmonary branches to suggest pulmonary embolus. Evaluation of the peripheral branches is degraded by motion artifact. Heart: The heart is enlarged and without pericardial effusion. Lungs and pleural spaces: Evaluation of the lung parenchyma is significantly degraded by motion artifact. The trachea and central airways appear clear. There is no lobar consolidation or pleural effusion. There is mild bronchiectasis in the right middle lobe with foci of mucus plugging. Foci of tree-in-bud nodularity with groundglass opacities are seen throughout the right lung, greatest in the upper and middle lobes. Milder similar-appearing tree-in-bud opacities are noted in the lingula. A 12 mm ovoid nodular focus in the right middle lobe on image #105 likely represents an impacted bronchus. A 5 mm nodular focus in the right upper lobe as seen on image #157. Mild parenchymal scarring/fibrosis is seen in the lingula. Mediastinum: There is no mediastinal lymphadenopathy. [place]: Clear. Axillae: There is no axillary lymphadenopathy. Upper abdomen: There is a small hiatal hernia. Partially visualized upper abdominal viscera is otherwise within normal limits. Skeletal structures: The skeletal structures are osteopenic. No lytic or blastic bony lesions are seen. Degenerative change is noted in the shoulders and spine. IMPRESSION: 1. Motion compromised examination. 2. There is no evidence of pulmonary embolus in the main, lobar, or segmental pulmonary arteries. 3. Cardiomegaly 4. There is no lobar consolidation or pleural effusion. 5. There are numerous foci of tree-in-bud nodularity throughout the right lung as above with mild groundglass change. There are additional chronic appearing findings in the right middle lobe and lingula. The appearance favors a mild infectious/inflammatory pneumonitis. Some of this likely represents a chronic process such as atypical mycobacterial infection (GARRISON). Outpatient follow-up with pulmonology is recommended, as is a repeat chest CT in 3-4 months time to document resolution. 6. A 12 mm ovoid nodular structure in the right middle lobe likely represents an impacted bronchus. This should also be recessed at follow-up. 7. Additional findings as above. ACT 112: Negative or not required by law. Electronically signed by: Luke Del Angel M.D. 07/18/2023 4:14 PM Chest X-Ray 07/18/23 14:42 SINGLE VIEW CHEST CLINICAL HISTORY: Dyspnea FINDINGS: An AP, portable, upright chest radiograph is correlated with chest CT performed the same day 07/18/2023. The heart is enlarged noting atherosclerotic calcification of the thoracic aorta. There is prominence of the pulmonary vasculature. There is elevation right hemidiaphragm with bibasilar opacities. No large pleural effusion or pneumothorax is seen. The skeletal structures are osteopenic. The bony thorax is grossly intact. IMPRESSION: 1. Cardiomegaly with prominence of the pulmonary vasculature. Correlate clinically for evidence of mild fluid overload/congestive change. 2. Bibasilar airspace opacities as above. Pulmonary parenchymal findings were much better assessed on today's CT scan. ACT 112: Negative or not required by law. Electronically signed by: Luke Del Angel M.D. 07/18/2023 4:37 PM ECG Additional Comments: Normal sinus rhythm Left axis deviation Possible Old Septal infarct Abnormal ECG No previous ECGs available Confirmed by Sinan Brown ([id number]) on 07/18/2023 4:59:46 PM Code Status & VTE Plan Code Status Full code VTE Prophylaxis Plan VTE Prophylaxis will be ordered: Yes Supervising Physician Co-Signing Physician Notes I personally saw and examined the patient. I verified all ivan points and agree with Flaco Ferreira PA-C with the following exceptions and/or additions: 82 year old female with history of GARRISON presents to the ER with sudden onset shortness of breath. Woke up from napping today with sudden worsening over the course of an hour from still wanting to do the daily activities to going to urgent care then wanting to come straight to the ER. Significant improvement after duonebs and steroids given but still unable to complete full sentences. She reports feeling well before her nap although she did note problems with her CPAP last night due to shortness of breath. O/E A&Ox3, HS increased rate, regular rhythm, no murmurs, significant expiratory wheezing throughout, no crackles, increased accessory muscle use, Abdo SNT, no pedal edema A/P Acute respiratory failure with hypoxia - suspect somewhat due to mucus plugging after napping without her CPAP napping and having problems wearing her CPAP last night due to shortness of breath. However I don't feel this fully explains her significant wheezing throughout. Mucus plugging - duonebs, hypertonic saline, flutter valve, vibration vest Wheezing - ?underling reactive airway disease. Duonebs q4h, Formoterol/Budesonide NEBs BID. Solu-medrol 1250mg IV given in the ER, continue 60mg IV BID given continued wheezing despite significant nebulizer treatments. Consult pulmonology Possible aspiration pneumonitis/pneumonia - cover for aspiration with Unasyn, cover for atypical pneumonia with azithromycin, clear liqiuds ok for now, SLT consult PG Care Time/CCT Total # of Minutes Spent Total Time Spent with Patient: Total time spent is greater than 50% in coordination of care (as documented) at patient's floor/unit and/or counseling patient: [place] [address] INT INP/OBS CARE 3/75MIN Patient Type New Medical Decision Making Moderate Complexity Diagnoses Acute respiratory failure with hypoxia J96.01 Mycobacterium avium complex A31.0 Chest pain R07.9 COPD (chronic obstructive pulmonary disease) J44.9 DMII (diabetes mellitus, type 2) E11.9 Hypertension I10 RADHA (obstructive sleep apnea) G47.33
[2023-07-18] MEDS ORDERED: guaiFENesin/CODEINE 100MG/10MG 5ML UDC PO STA (19:13)
[2023-07-18] MEDS ORDERED: GLUCOSE 40% GEL 15 GM TUBE PO PRN (19:20)
[2023-07-18] MEDS ORDERED: PHARMACY GLYCEMIC MGMT CONSULT PRN (19:20)
[2023-07-18] MEDS ORDERED: GLUCOSE 10 TAB/TUBE PO PRN (19:20)
[2023-07-18] MEDS ORDERED: DEXTROSE 50% 50 ML SYRINGE IV PRN (19:20)
[2023-07-18] MEDS ORDERED: GLUCAGON FOR INJ 1 MG VIAL SQ PRN (19:20)
[2023-07-18] MEDS ORDERED: CARBOHYDRATES FOR HYPOGLYCEMIA PO PRN (19:20)
[2023-07-18] MEDS ORDERED: Patient's HEIGHT &/or WEIGHT Needed SCH (20:00)
[2023-07-18] MEDS ORDERED: ACETAMINOPHEN 325 MG TAB PO PRN (20:07)
[2023-07-18] MEDS: INSULIN ASPART PER UNIT CHARGE SC SCH (20:38)
[2023-07-18] MEDS ORDERED: LANTUS PER UNIT CHARGE SQ ONE (21:00)
[2023-07-18] MEDS: SODIUM CHLOR 7% 4 ML NEB NEB SCH (21:26)
[2023-07-18] MEDS: FORMOTEROL 20 MCG/2 ML VIAL NEB SCH (21:26)
[2023-07-18] MEDS: BUDESONIDE 0.5 MG/2 ML VIAL (PULMICORT) NEB SCH (21:26)
[2023-07-18] MEDS: AMPICILLIN/SULBACTAM SOD 3,000 MG in SODIUM CHLOR 0.9% MINI-B 100 ML IV SCH (21:35)
[2023-07-18] MEDS: ENOXAPARIN INJ 40 MG/0.4 ML SYR SQ SCH (21:55)
[2023-07-18] MEDS: LEVOTHYROXINE SODIUM 88 MCG TABLET PO SCH (21:55)
[2023-07-18] MEDS: ALBUT/IPRATROP 3MG/0.5MG NEB 3 ML VIAL NEB SCH (23:04)
[2023-07-18] MEDS: MAGNESIUM SULFATE / D5W 1 GM/100 ML BAG IV SCH (23:46)
[2023-07-19] MEDS: MAGNESIUM SULFATE / D5W 1 GM/100 ML BAG IV SCH (00:05)
[2023-07-19] MEDS: ALBUT/IPRATROP 3MG/0.5MG NEB 3 ML VIAL NEB SCH ×2 (02:47→07:20)
[2023-07-19] MEDS: AMPICILLIN/SULBACTAM SOD 3,000 MG in SODIUM CHLOR 0.9% MINI-B 100 ML IV SCH ×2 (02:57→08:10)
[2023-07-19] MEDS: FORMOTEROL 20 MCG/2 ML VIAL NEB SCH (07:19)
[2023-07-19] MEDS: BUDESONIDE 0.5 MG/2 ML VIAL (PULMICORT) NEB SCH (07:20)
[2023-07-19] MEDS: SODIUM CHLOR 7% 4 ML NEB NEB SCH ×2 (07:20→20:08)
[2023-07-19 07:27] LABS: Basophils # (auto) 0.02 K/uL (0.00-0.20); Basophils % (auto) 0.2 %; Eosinophils # (auto) 0.01 K/uL (0.00-0.50); Eosinophils % (auto) 0.1 %; Hematocrit (blood only) 35.6 % (37.0-47.0); Hemoglobin 11.9 g/dl (12.0-16.0); Immature Granulocytes # (auto) 0.04 K/uL (0.01-0.20); Immature Granulocytes % (auto) 0.4 %; Lymphocytes # (auto) 0.85 K/uL (1.20-3.40); Lymphocytes % (auto) 8.5 %; Mean Corpuscular Hemoglobin 31.4 pg (25.0-34.0); Mean Corpuscular Hgb Conc 33.4 g/dL (32.0-36.0); Mean Corpuscular Volume 93.9 fL (80.0-100.0); Mean Platelet Volume 12.3 fL (9.4-12.4); Monocytes # (auto) 0.16 K/uL (0.11-0.59); Monocytes % (auto) 1.6 %; Neutrophils % (auto) 89.2 %; Platelet Count 241 K/uL (130-400); RDW Coefficient of Variation 14.5 % (11.5-14.5); RDW Standard Deviation 50.4 fL (36.4-46.3); Red Blood Count 3.79 M/uL (4.20-5.40); White Blood Count 9.98 K/ul (4.8-10.8)
[2023-07-19 07:48] LABS: BUN Creatinine Ratio 27.1 (10-20); Creatinine Clr Calc Pharmacy 81.1 ml/min; Est GFR (African American) 97.5 ml/min; Est GFR (Non-African American) 84.2 ml/min; Potassium 4.5 mmol/L (3.5-5.1)
[2023-07-19] MEDS: INSULIN ASPART PER UNIT CHARGE SC SCH ×4 (07:48→21:32)
[2023-07-19] MEDS: ATORVASTATIN 10 MG TAB PO SCH (08:12)
[2023-07-19] MEDS: LOSARTAN POTASSIUM 25 MG TAB PO SCH (08:12)
--- NOTE | 2023-07-19 08:15 | Pulmonary Consultation ---
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 She was never hypoxemic and was placed on oxygen. Her CT scan is not particularly impressive and her white blood cell count was normal. She did have evidence of acute on chronic hypercarbic respiratory failure and has improved currently. Unclear what her functional baseline is. No PFTs are available. [place] is [place] from [place] of [place]. Recommendations: 1. Hypercarbic respiratory failure: Continue nocturnal noninvasive positive pressure ventilation. Should the patient experience altered mental status, would have a low threshold for repeating venous blood gas and consideration for transition from CPAP to BiPAP. He has her home CPAP unit but did not bring it to the hospital. 2. Reported history of COPD: No PFTs available. This would be somewhat unusual as the patient is a lifelong non-smoker. She does not appear overtly bronchospastic currently and I do not see an indication for systemic steroids. Will continue bronchodilators in the form of Anoro. Can use as needed DuoNebs should the patient experience wheezing. 3. Bronchiolitis: Agree with flutter valve and hypertonic saline as well as Mucinex. The patient needs a vest therapy at this point time as she has minimal bronchiectasis identified on the CT scan. 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 This is a very unusual pulmonary pathogen as typically this organism tends to cause lymphadenitis most commonly in children. Regardless, I do not think it is at play currently and would not recommend antimicrobial therapy. The patient should be given a copy of her CT scan to take back with her to [place] so her ID specialist and pulmonary providers can correlate current set of imaging's with prior imaging to see whether or not there is been any significant progression. Again this would be an unusual pulmonary pathogen and does not require therapy acutely. 5. The patient was never hypoxemic. The lowest oxygen saturation recorded was 89% which would not qualify her for supplemental oxygen. I turned her oxygen off during the interview and she remained at 95% on room air. Recommend formal two-step oxygen evaluation to see whether or not the patient actually drops below 88% necessitating supplemental oxygen. This should be performed when the patient's CO2 levels are normal as hypercarbic respiratory failure may contribute to her hypoxemia. Anticipate relatively short hospitalization. Will see how she responds over the next 12 to 24 hours. Ultimate disposition per primary admitting service. History of Present Illness Attending Physician: Fatmata Espino MD History of Present Illness Asked by hospitalist to assist in evaluation management of this patient admitted with respiratory issues. History is obtained from review the electronic medical record as well as discussion with the patient. The patient is an 82-year-old female who is visiting here from [place]. She is followed by pulmonary and infectious disease in [place] and sees her staff registered nurse on an annual basis. 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 Apparently antibiotics have been discussed with the patient but she was reluctant to consider a 12-month course of antimicrobial therapy. She was also reluctant to have serial CT scans and has been managed with observation at this point in time. She does have sleep disordered breathing and uses CPAP. The patient states she was diagnosed with COVID in May and has had a persistent cough since that time. She states that yesterday she had some issues with her CPAP. She continued to cough and have some minimal mucus which prompted her to be seen in the emergency room. She was noted to have oxygen saturations above 90% but was placed on supplemental oxygen regardless. She was wheezing. She is unclear if she has a diagnosis of COPD or not. She was given steroids and started on broad-spectrum antibiotics in the form of Unasyn and azithromycin and admitted to the hospitalist service. His CT scan showed no evidence of PE. There were some tree-in-bud opacities identified consistent with the patient's prior history of nontuberculous mycobacterial infection. No comparison scans were noted. This morning the patient states that she feels better. She is coughing up some phlegm intermittently. She does endorse some slight postnasal drip. She not had any ill contacts. A viral respiratory panel was negative on admission. Allergies Allergy/AdvReac Type Severity Reaction Status Date / Time piroxicam Allergy Severe Angioedema Unverified 07/18/23 17:59 acetaminophen [From Percocet] AdvReac Severe Hallucinati Unverified 07/18/23 17: 59 ng/Loopy oxycodone [From Percocet] AdvReac Severe Hallucinati Unverified 07/18/23 17:59 ng/Loopy Home Medications Medication Instructions Recorded Confirmed Type atorvastatin 10 mg tablet 10 mg PO QAM 07/18/23 07/18/23 History cholecalciferol (vitamin D3) 50 50 mcg PO QAM 07/18/23 07/18/23 History mcg (2,000 unit) tablet (Vitamin D3) coenzyme Q10 100 mg capsule (Co 100 mg PO QAM 07/18/23 07/18/23 History Q-10) insulin NPH isoph U-100 human 100 0 unit subcut BID 07/18/23 07/18/23 History unit/mL subcutaneous suspension (Humulin N NPH U-100 Insulin (isophane susp)) levothyroxine 88 mcg tablet 88 mcg PO HS 07/18/23 07/18/23 History losartan 25 mg tablet 25 mg PO QAM 07/18/23 07/18/23 History modafinil 200 mg tablet 200 mg PO DAILY PRN To stay awake 07/18/23 07/18/23 History Patient History Social History Smoking Status: Never smoker Hx Alcohol Use: No Hx Substance Use: No Preferred Language: Wolof Communication Ability: Effective Artificial Stone Setter Required: No Beliefs That Will Affect Care: None Current Living Situation: Spouse Other Information That Helps Us Care for You: No Feels Safe at Home: Yes Safety Concerns: Feels Safe At This Time Assistive Devices: CPAP and Glasses Assistive Devices Comment: gaile Review of Systems Review of Systems: All systems reviewed & are unremarkable except as noted in Subjective Physical Exam Constitutional: WD/WN, vitals as above Neck: trachea midline, no thyromegaly Respiratory: normal respiratory effort, lungs clear to auscultation Cardiovascular: RRR, no murmur, no edema Gastrointestinal (Abdomen): normal bowel sounds, soft, nontender, no hepatosplenomegaly Musculoskeletal: Extremities: extremities normal to inspection Skin: no rashes, warm and dry Neurologic: Nonfocal exam Lymphatic: no cervical lymphadenopathy Results & Data Results & Data Vital Signs (Past 12 Hours) Vital Signs Temp Pulse Pulse Resp BP Pulse Ox Pulse Ox 07/19/23 07:22 95 H 15 95 07/19/23 07:21 37.0 C 95 H 16 137/76 95 07/19/23 03:59 36.8 C 96 H 18 143/74 H 98 07/19/23 02:51 103 H 29 H 96 07/19/23 02:48 97 H 20 90 07/18/23 23:55 36.9 C 101 H 144/69 H 99 07/18/23 23:14 107 H 18 96 07/18/23 22:04 108 H 07/18/23 21:30 102 H 18 97 07/18/23 21:20 109 H 07/18/23 21:16 97 07/18/23 21:16 36.5 C 113 H 17 167/76 H 96 07/18/23 21:15 07/18/23 21:15 36.5 C 113 H 22 167/76 H 97 O2 Del Method O2 Del Method O2 Flow Rate O2 Flow Rate 07/19/23 07:22 Nasal Cannula 2 07/19/23 07:21 Nasal Cannula 2.0 07/19/23 03:59 Room Air 07/19/23 02:51 2 07/19/23 02:48 CPAP 2 07/18/23 23:55 Room Air 07/18/23 23:14 Nasal Cannula 2 07/18/23 22:04 07/18/23 21:30 Nasal Cannula 3 07/18/23 21:20 07/18/23 21:16 Nasal Cannula 2 07/18/23 21:16 Room Air 07/18/23 21:15 Nasal Cannula 2 07/18/23 21:15 Nasal Cannula 2 Critical Care Results & Data Vital Signs (Past 12 Hours) Vital Signs Temp Pulse Pulse Resp BP Pulse Ox Pulse Ox 07/19/23 07:22 95 H 15 95 07/19/23 07:21 37.0 C 95 H 16 137/76 95 07/19/23 03:59 36.8 C 96 H 18 143/74 H 98 07/19/23 02:51 103 H 29 H 96 07/19/23 02:48 97 H 20 90 07/18/23 23:55 36.9 C 101 H 144/69 H 99 07/18/23 23:14 107 H 18 96 07/18/23 22:04 108 H 07/18/23 21:30 102 H 18 97 07/18/23 21:20 109 H 07/18/23 21:16 97 07/18/23 21:16 36.5 C 113 H 17 167/76 H 96 07/18/23 21:15 07/18/23 21:15 36.5 C 113 H 22 167/76 H 97 O2 Del Method O2 Del Method O2 Flow Rate O2 Flow Rate 07/19/23 07:22 Nasal Cannula 2 07/19/23 07:21 Nasal Cannula 2.0 07/19/23 03:59 Room Air 07/19/23 02:51 2 07/19/23 02:48 CPAP 2 07/18/23 23:55 Room Air 07/18/23 23:14 Nasal Cannula 2 07/18/23 22:04 07/18/23 21:30 Nasal Cannula 3 07/18/23 21:20 07/18/23 21:16 Nasal Cannula 2 07/18/23 21:16 Room Air 07/18/23 21:15 Nasal Cannula 2 07/18/23 21:15 Nasal Cannula 2 Lab & Micro Results (Past 24 Hours) RBC 3.79 M/uL (4.20-5.40) L 07/19/23 WBC 9.98 K/ul (4.8-10.8) 07/19/23 Hgb 11.9 g/dl (12.0-16.0) L 07/19/23 Hct 35.6 % (37.0-47.0) L 07/19/23 MCV 93.9 fL (80.0-100.0) 07/19/23 MCH 31.4 pg (25.0-34.0) 07/19/23 MCHC 33.4 g/dL (32.0-36.0) 07/19/23 RDW Standard Deviation 50.4 fL (36.4-46.3) H 07/19/23 RDW Coefficient of Variation 14.5 % (11.5-14.5) 07/19/23 Plt Count 241 K/uL (130-400) 07/19/23 MPV 12.3 fL (9.4-12.4) 07/19/23 Neutrophils (%) (Auto) 89.2 % 07/19/23 Lymphocytes (%) (Auto) 8.5 % 07/19/23 Monocytes # (Auto) 0.16 K/uL (0.11-0.59) 07/19/23 Eosinophils # (Auto) 0.01 K/uL (0.00-0.50) 07/19/23 Immature Granulocyte % (Auto) 0.4 % 07/19/23 Neutrophils # (Auto) 8.90 K/uL (1.40-6.50) H 07/19/23 Lymphocytes # (Auto) 0.85 K/uL (1.20-3.40) L 07/19/23 Monocytes # (Auto) 0.16 K/uL (0.11-0.59) 07/19/23 Eosinophils # (Auto) 0.01 K/uL (0.00-0.50) 07/19/23 Basophils # (Auto) 0.02 K/uL (0.00-0.20) 07/19/23 Immature Granulocyte # (Auto) 0.04 K/uL (0.01-0.20) 3 Na 138 mmol/L (136-145) 07/19/23 K 4.5 mmol/L (3.5-5.1) 07/19/23 Cl 105 mmol/L (98-107) 07/19/23 CO2 28 mmol/L (21-32) 07/19/23 Anion Gap 5 (3-11) 07/19/23 BUN 16 mg/dl (6-23) 07/19/23 Creatinine 0.59 mg/dl (0.6-1.2) L 07/19/23 Estimated GFR ( Amer) 97.5 ml/min 07/19/23 Estimated GFR (Non-Af Amer) 84.2 ml/min 07/19/23 BUN/Creatinine Ratio 27.1 (10-20) H 07/19/23 Glu 231 mg/dl (70-99(Fasting)) H 07/19/23 Ca 9.0 mg/dl (8.6-10.3) 07/19/23 Total Bilirubin 0.8 mg/dl (0.2-1.0) 07/18/23 AST 20 U/L (13-39) 07/18/23 ALT 14 U/L (7-52) 07/18/23 Alkaline Phosphatase 91 U/L (34-104) 07/18/23 TP 7.6 gm/dl (6.0-8.3) 07/18/23 Albumin 4.2 gm/dl (3.4-5.0) 12/14/23 Globulin 3.4 gm/dl (2.5-4.0) 07/18/23 Albumin/Globulin Ratio 1.2 (0.9-2) 07/18/23 Mg 1.8 mg/dl (1.7-2.4) 07/18/23 14:53 Calcium Level 9.0 mg/dl (8.6-10.3) 07/19/23 06:34 Prothromb Time International Ratio 1.0 (0.9-1.1) 07/18/23 14:5 3 Venous Blood pH 7.33 (7.36-7.41) L 07/18/23 15:02 Venous Blood Partial Pressure CO2 58 mmHg (38-50) H 07/18/23 15 :02 Venous Blood Partial Pressure O2 28 mmHg 07/18/23 15:02 Venous Blood HCO3 31 mmol/L 07/18/23 15:02 Venous Blood Base Excess 3.2 mEq/L 07/18/23 15:02 Venous Blood Oxygen Saturation < 60.0 % 07/18/23 15:02 Diagnostic Findings (Past 24 Hours) Chest CTA 07/18/23 14:42 CT ANGIOGRAM OF THE CHEST CLINICAL HISTORY: Dyspnea. Recent travel. COMPARISON STUDY: No priors. TECHNIQUE: Following the IV administration of 117 cc of Optiray 320, CT angiogram of the chest was performed from the upper abdomen to the thoracic inlet utilizing the pulmonary embolus protocol. Images are reviewed in the axial, sagittal, and coronal planes. 3-D MIPS images are created and assessed. IV contrast was administered without complication. A dose lowering technique was utilized adhering to the principles of ALARA. The examination is compromised by motion artifact. CT DOSE: 800.32 mGy.cm FINDINGS: Thyroid: Imaged portions of the thyroid gland are normal in size and attenuation. Thoracic aorta: There is mild atherosclerotic calcification of the thoracic aorta, which is normal in caliber and demonstrates standard 3-vessel arch anatomy. No dissection is seen. Pulmonary vasculature: The pulmonary trunk is normal in caliber. There are no filling defects identified in main, lobar, or segmental pulmonary branches to suggest pulmonary embolus. Evaluation of the peripheral branches is degraded by motion artifact. Heart: The heart is enlarged and without pericardial effusion. Lungs and pleural spaces: Evaluation of the lung parenchyma is significantly degraded by motion artifact. The trachea and central airways appear clear. There is no lobar consolidation or pleural effusion. There is mild bronchiectasis in the right middle lobe with foci of mucus plugging. Foci of tree-in-bud nodularity with groundglass opacities are seen throughout the right lung, greatest in the upper and middle lobes. Milder similar-appearing tree-in-bud opacities are noted in the lingula. A 12 mm ovoid nodular focus in the right middle lobe on image #105 likely represents an impacted bronchus. A 5 mm nodular focus in the right upper lobe as seen on image #157. Mild parenchymal scarring/fibrosis is seen in the lingula. Mediastinum: There is no mediastinal lymphadenopathy. [place]: Clear. Axillae: There is no axillary lymphadenopathy. Upper abdomen: There is a small hiatal hernia. Partially visualized upper abdominal viscera is otherwise within normal limits. Skeletal structures: The skeletal structures are osteopenic. No lytic or blastic bony lesions are seen. Degenerative change is noted in the shoulders and spine. IMPRESSION: 1. Motion compromised examination. 2. There is no evidence of pulmonary embolus in the main, lobar, or segmental pulmonary arteries. 3. Cardiomegaly 4. There is no lobar consolidation or pleural effusion. 5. There are numerous foci of tree-in-bud nodularity throughout the right lung as above with mild groundglass change. There are additional chronic appearing findings in the right middle lobe and lingula. The appearance favors a mild infectious/inflammatory pneumonitis. Some of this likely represents a chronic process such as atypical mycobacterial infection (GARRISON). Outpatient follow-up with pulmonology is recommended, as is a repeat chest CT in 3-4 months time to document resolution. 6. A 12 mm ovoid nodular structure in the right middle lobe likely represents an impacted bronchus. This should also be recessed at follow-up. 7. Additional findings as above. ACT 112: Negative or not required by law. Electronically signed by: Luke Del Angel M.D. 07/18/2023 4:14 PM Chest X-Ray 07/18/23 14:42 SINGLE VIEW CHEST CLINICAL HISTORY: Dyspnea FINDINGS: An AP, portable, upright chest radiograph is correlated with chest CT performed the same day 07/18/2023. The heart is enlarged noting atherosclerotic calcification of the thoracic aorta. There is prominence of the pulmonary vasculature. There is elevation right hemidiaphragm with bibasilar opacities. No large pleural effusion or pneumothorax is seen. The skeletal structures are osteopenic. The bony thorax is grossly intact. IMPRESSION: 1. Cardiomegaly with prominence of the pulmonary vasculature. Correlate clinically for evidence of mild fluid overload/congestive change. 2. Bibasilar airspace opacities as above. Pulmonary parenchymal findings were much better assessed on today's CT scan. ACT 112: Negative or not required by law. Electronically signed by: Luke Del Angel M.D. 07/18/2023 4:37 PM I & O Totals 24 Hours 07/18/23 07/19/23 07/20/23 06:59 06:59 06:59 Intake Total 1705 / 1705 Output Total 4 / 4 Balance 1701 / 1701 Cumulative 07/18/23 14:37 thru 07/19/23 06:00 Intake Total 1705 Output Total 4 Balance 1701 RT Ventilator Mngmt (Last Documented) Ventilator Ordered Settings Respiratory Rate 15 07/19/23 07:22 Ventilator - PT Measurements Respiratory Rate 15 PG Care Time/CCT Total # of Minutes Spent Total Time Spent with Patient: Total time spent is greater than 50% in coordination of care (as documented) at patient's floor/unit and/or counseling patient: Coding Level of Care Code 51116 INT INP/OBS CARE 3/75MIN Diagnoses Hypercapnic respiratory failure J96.92 RADHA (obstructive sleep apnea) G47.33 Nontuberculous mycobacterial infection A31.9 COPD (chronic obstructive pulmonary disease) J44.9
[2023-07-19] MEDS ORDERED: methylPREDNISolone 125 MG/2 ML VIAL IV SCH (09:00)
[2023-07-19] MEDS ORDERED: methylPREDNISolone 60 MG in SYRINGE 0 ML IV SCH (09:00)
[2023-07-19] MEDS ORDERED: LANTUS PER UNIT CHARGE SC SCH (09:00)
--- NOTE | 2023-07-19 09:33 | Pharmacy Report ---
Pharmacy Glycemic Short Note 2 - Date of Service July 19, 2023 - Glycemic Short BSG Results (Last 24 hours): 07/18/23 07/18/23 07/18/23 14:53 19:48 21:20 Glucose 203 H POC Glucose 222 H 260 H 07/18/23 07/19/23 07/19/23 22:33 06:34 07:24 Glucose 231 H POC Glucose 258 H 212 H OUTPATIENT ANTIDIABETIC REGIMEN: * NPH 13 units SC in AM and 7 units SC at HS * HbA1c: ASSESSMENT: * 82 y/o F admitted for SOB and COPD exacerbation yesterday. Patient has history of diabetes managed with NPH basal insulin at home. * Solu medrol IV was started last night for acute respiratory symptoms. BSGs trended up above 200 mg/dl. * Lantus 25 units SQ given last night, and again this morning for the IV Solu medrol 60 mg that was ordered. Patient received dose this morning then steroid was discontinued. Will reassess basal needs tomorrow. * Novolog started last night based on weight/stress of 2. Since patient is no longer on steroids, this was loosened slightly for dinner. PLAN FOR INPATIENT GLYCEMIC CONTROL: * Hold outpatient diabetes medications * Basal insulin * Lantus 25 units SQ last night and this AM. Re-asses dose tomorrow. * Bolus insulin * NovoLog per scale ACHS or Q6hrs while NPO * Goal Range: Low 110 mg/dL - High 140 mg/dL * Correction Factor: 25 mg/dL/unit * Nutritional / Prandial insulin per carb ratio of 1 unit per 8 grams CHO consumed
[2023-07-19 10:09] LABS: Estimated Average Glucose 137 mg/dl; Hemoglobin A1C 6.4 % (4.5-5.6)
[2023-07-19] MEDS: guaiFENesin 600 MG TABCR PO SCH ×2 (10:27→21:33)
[2023-07-19] MEDS: UMECLIDINIUM/VILANTEROL 62.5/25MCG 7 PUFFS/INHALER INH SCH (10:28)
--- NOTE | 2023-07-19 10:42 | Hospitalist Progress Note ---
Date of Service July 19, 2023 Assessment & Plan (1) Acute respiratory failure with hypoxia: Plan: -Presented to the ED with acute onset of non-productive cough, significant wheezing, and respiratory distress -Noted to be hypoxic at 85% on RA and placed on 2L NC in the ED -CTA of the chest is negative for PE; known bronchiectasis in the right lung without cavitary lesions but a 12mm ovoid nodule -Currently hemodynamically stable at room air. -Will continue with Unasyn and Azithromycin at this time -chest vest therapy QID with hypertonic nebulizers to help her loosen her mucus plug -Pulmonology reccs: Hypercarbic Resp. Failure -- continue nocturnal noninvasive positive pressure ventilation; consider repeat VBG and BiPAP if patient develops AMS Reported Hx of COPD -- unlikely given she is a lifetime non-smoker; no PFTs; no indication for systemic steroids; continue bronchodilators (e.g. Anoro). Duonebs as needed for wheezing. 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 Encouraged to f/u with her ID in [place]. Not hypoxemic on arrival -- recorded O2 sat was 88% and does not meet criteria for supplemental oxygen. Recommend 2-step after her CO2 is normal since hypercarbic resp failure may contribute to her hypoxemia. (2) Chest pain: Plan: -Patient initially presented with substernal chest pain while coughing -No acute ST segment or T-wave changes noted on ECG, high sen trop WNL -Patient's pain has resolved after initial treatment in the ED -Likely musculoskeletal due to her cough -Will start with prn tylenol (3) DMII (diabetes mellitus, type 2): Plan: -Normally on NPH, will hold -Monitor BSG ACHS, goal is 110-140 -Will likely be hyperglycemic with systemic steroids -Will start 10 units lantus BID, CF 50, and CR 15 for now (4) Hypertension: Plan: -Initially hypertension with systolic BP in the 200's on arrival -S/P 10 mg hydralazine in the ED - BP now stable -Likely due to her distress for acute respiratory failure on arrival, she confirms she took her am losartan today (5) RADHA (obstructive sleep apnea): Plan: -HS CPAP ordered Plan Admit to PCU/ Telemetry Diet: DMII, HH DVT Prophylaxis: Lovenox Admission and Anticipated Discharge Date Admission Date: July 18, 2023 Supervising Physician Co-Signing Physician Notes Attending Physician Supervision Note: I independently interviewed and examined the patient and verified the ivan history and physical, reviewed labs and image studies and agree with findings and care plan noted above. breathing better since after admission but still not at baseline. coughing + o/e - comfortable in bed. vitals noted. lungs - wheezing +, RRR Pulmonary consulted. Hypercapnic resp failure - nocturnal bipap. 2 step in am. RADHA with ? pul htn - on modafinil. Reported h/o of COPD - presented with Wheezing - due to ? aspiration/bronchiolitis. consider d/c unasyn and azithromycin in am. continue nebs. no steroids. Bronchiolitis and Mild bronchiectasis - flutter valve, hypertonic saline and mucinex. will need to set up vest therapy hx of Mycobacterium scrofulaceum - ID f/u outpatient Enoxaparin Subjective Shante is an 82 y/o female with PMHx of GARRISON who presented to the ED on 07/18/23 due to worsening coughing and SOB. She was admitted due to acute respiratory failure with hypoxia. She was evaluated at bedside today and found to be clinically stable, awake, alert, oriented, and in no acute distress. She reports that although she does have SOB when ambulating to the toilet as well as coughing, she feels better compared to when she had arrived to the ED. She is saturating well at room air. Her only complaint today was of a persistent headache that may be associated to her frequent coughing. She denies other symptoms such as fevers, chills, weakness, malaise, etc. Review of Systems Review of Systems: As per HPI. Physical Exam Physical Exam: General: Alert. Oriented to person, time, and place. Afebrile. No acute distress. Cardiac: Regular rate and rhythm, no murmurs/rubs/gallops. Respiratory: Expiratory wheezing. No increased work of breathing. Symmetrical chest rise. No respiratory distress. Abdomen: Soft, nontender, slightly distended. Bowel sounds present. Lower Extremities: No lower extremity edema or swelling. No deep calf pain. Jayce's negative bilaterally. Psych: Euthymic affect. Mood and affect congruence. Regular speech rate and content. Results & Data Results & Data Vital Signs (Past 12 Hours) Vital Signs Temp Pulse Pulse Resp BP Pulse Ox O2 Del Method 07/19/23 08:24 Nasal Cannula, CPAP, Nebulizer 07/19/23 07:22 95 H 15 95 Nasal Cannula 07/19/23 07:21 37.0 C 95 H 16 137/76 95 Nasal Cannula 07/19/23 03:59 36.8 C 96 H 18 143/74 H 98 Room Air 07/19/23 02:51 103 H 29 H 96 07/19/23 02:48 97 H 20 90 CPAP 07/18/23 23:55 36.9 C 101 H 144/69 H 99 Room Air 07/18/23 23:14 107 H 18 96 Nasal Cannula O2 Flow Rate 07/19/23 08:24 4 07/19/23 07:22 2 07/19/23 07:21 2.0 07/19/23 03:59 07/19/23 02:51 2 07/19/23 02:48 2 07/18/23 23:55 07/18/23 23:14 2 Resident Activity Tracking Resident Involvement: Resident Care Provided Care Provided: Adult Hospital Medicine
[2023-07-19] MEDS: ACETAMINOPHEN 500 MG TAB PO PRN (14:13)
[2023-07-19] MEDS ORDERED: AZITHROMYCIN 500 MG in DEXTROSE 5% 250 ML IV SCH (17:00)
[2023-07-19] MEDS: ENOXAPARIN INJ 40 MG/0.4 ML SYR SQ SCH (21:34)
[2023-07-19] MEDS: POLYETHYLENE (MIRALAX) 17 GM PACK PO SCH (21:34)
[2023-07-19] MEDS: LEVOTHYROXINE SODIUM 88 MCG TABLET PO SCH (23:30)
[2023-07-20 06:58] LABS: BUN Creatinine Ratio 25.6 (10-20); Calcium 9.3 mg/dl (8.6-10.3); Creatinine Clr Calc Pharmacy 60.1 ml/min; Est GFR (African American) 80.9 ml/min; Est GFR (Non-African American) 69.8 ml/min; Potassium 4.2 mmol/L (3.5-5.1)
[2023-07-20] MEDS: SODIUM CHLOR 7% 4 ML NEB NEB SCH ×2 (07:02→19:52)
[2023-07-20] MEDS: ALBUT/IPRATROP 3MG/0.5MG NEB 3 ML VIAL NEB PRN ×2 (07:02→19:53)
[2023-07-20 07:26] LABS: Basophils # (auto) 0.02 K/uL (0.00-0.20); Basophils % (auto) 0.1 %; Eosinophils # (auto) 0.03 K/uL (0.00-0.50); Eosinophils % (auto) 0.2 %; Hematocrit (blood only) 38.5 % (37.0-47.0); Hemoglobin 12.7 g/dl (12.0-16.0); Immature Granulocytes # (auto) 0.09 K/uL (0.01-0.20); Immature Granulocytes % (auto) 0.5 %; Lymphocytes # (auto) 1.89 K/uL (1.20-3.40); Lymphocytes % (auto) 11.4 %; Mean Corpuscular Hemoglobin 31.2 pg (25.0-34.0); Mean Corpuscular Volume 94.6 fL (80.0-100.0); Mean Platelet Volume 11.9 fL (9.4-12.4); Neutrophils # (auto) 13.55 K/uL (1.40-6.50); Neutrophils % (auto) 81.8 %; Platelet Count 298 K/uL (130-400); RDW Coefficient of Variation 14.7 % (11.5-14.5); RDW Standard Deviation 51.3 fL (36.4-46.3); Red Blood Count 4.07 M/uL (4.20-5.40); White Blood Count 16.58 K/ul (4.8-10.8)
[2023-07-20] MEDS: UMECLIDINIUM/VILANTEROL 62.5/25MCG 7 PUFFS/INHALER INH SCH (08:32)
[2023-07-20] MEDS: INSULIN ASPART PER UNIT CHARGE SC SCH ×4 (08:32→20:28)
[2023-07-20] MEDS: POLYETHYLENE (MIRALAX) 17 GM PACK PO SCH ×2 (08:33→20:20)
[2023-07-20] MEDS: ATORVASTATIN 10 MG TAB PO SCH (08:34)
[2023-07-20] MEDS: LOSARTAN POTASSIUM 25 MG TAB PO SCH (08:35)
[2023-07-20] MEDS: guaiFENesin 600 MG TABCR PO SCH ×2 (08:36→20:20)
[2023-07-20] MEDS: LANTUS PER UNIT CHARGE SC SCH (08:36)
--- NOTE | 2023-07-20 09:30 | Pulmonology Progress Note ---
Date of Service July 20, 2023 Assessment & Plan (1) Hypercapnic respiratory failure: (2) RADHA (obstructive sleep apnea): (3) Nontuberculous mycobacterial infection: (4) COPD (chronic obstructive pulmonary disease): Plan Impression: 82-year-old female with history of bronchiolitis and nontuberculous mycobacterial infection (not GARRISON) admitted with cough. She was never hypoxemic and was placed on oxygen. Her CT scan is not particularly impressive and her white blood cell count was normal. She did have evidence of acute on chronic hypercarbic respiratory failure and has improved currently. Unclear what her functional baseline is. No PFTs are available. [place]. She appears at her pulmonary baseline today Recommendations: 1. Hypercarbic respiratory failure: Continue nocturnal noninvasive positive pressure ventilation. Okay to use home CPAP and on discharge the patient should continue to use CPAP 2. Reported history of COPD: No PFTs available. Will continue bronchodilators in the form of Anoro. Can use as needed DuoNebs should the patient experience wheezing. 3. Bronchiolitis: Agree with flutter valve and hypertonic saline as well as Mucinex. No indication for additional chest physiotherapy 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 This is a very unusual pulmonary pathogen as typically this organism tends to cause lymphadenitis most commonly in children. Regardless, I do not think it is at play currently and would not recommend antimicrobial therapy. The patient should be given a copy of her CT scan to take back with her to [place] so her ID specialist and pulmonary providers can correlate current set of imaging's with prior imaging to see whether or not there is been any significant progression. Again this would be an unusual pulmonary pathogen and does not require therapy acutely. The patient's pulmonary issues have essentially resolved. She has a variety of other systemic complaints which are being evaluated by her primary admitting service. Pulmonary will sign off at this point in time. Feel free to contact us with additional questions or concerns. Admission and Anticipated Discharge Date Admission Date: July 18, 2023 Subjective Patient seen and examined. Reviewed. Patient is awake alert. She is off oxygen. She states she still feels some slight chest congestion. She is coughing but feels like she is at her baseline. Her newest complaint today is dysphagia. She feels that she is having difficulty swallowing. She denies fevers chills or night sweats. No chest pain or palpitations. No wheezing. Review of Systems 2 Review of Systems: All systems reviewed & are unremarkable except as noted in Subjective Physical Exam 2 Constitutional: WD/WN, vitals as above Neck: trachea midline, no thyromegaly Respiratory: normal respiratory effort, lungs clear to auscultation Cardiovascular: RRR, no murmur, no edema Gastrointestinal (Abdomen): normal bowel sounds, soft, nontender, no hepatosplenomegaly Musculoskeletal: Extremities: extremities normal to inspection Skin: no rashes, warm and dry Lymphatic: no cervical lymphadenopathy Results & Data Results & Data Vital Signs (Past 12 Hours) Vital Signs Temp Pulse Pulse Resp BP Pulse Ox O2 Del Method 07/20/23 08:04 36.4 C L 57 L 18 161/78 H 94 Room Air 07/20/23 07:03 81 16 92 CPAP 07/20/23 07:03 81 16 92 07/20/23 03:34 36.6 C 74 16 154/72 H 96 CPAP 07/20/23 02:55 73 15 91 07/20/23 00:46 70 18 95 07/19/23 23:01 36.9 C 75 20 131/72 96 Room Air 07/19/23 22:30 78 07/19/23 22:30 Room Air O2 Flow Rate FiO2 07/20/23 08:04 07/20/23 07:03 07/20/23 07:03 21 07/20/23 03:34 07/20/23 02:55 2 07/20/23 00:46 2 07/19/23 23:01 07/19/23 22:30 07/19/23 22:30 Laboratory Results 07/20/23 06:02 07/20/23 06:02 Diagnostic Findings No new imaging PG Care Time/CCT Total # of Minutes Spent Total Time Spent with Patient: Total time spent is greater than 50% in coordination of care (as documented) at patient's floor/unit and/or counseling patient: Coding Level of Care Code 85886 SUB INP/OBS CARE 2/35MIN Diagnoses Hypercapnic respiratory failure J96.92 RADHA (obstructive sleep apnea) G47.33 Nontuberculous mycobacterial infection A31.9 COPD (chronic obstructive pulmonary disease) J44.9
--- NOTE | 2023-07-20 09:44 | Hospitalist Progress Note ---
Date of Service July 20, 2023 Assessment & Plan (1) Acute respiratory failure with hypoxia: Plan: -Currently hemodynamically stable at and saturating well at room air. - Will add Fluticasone inhaler Would benefit from 2 weeks fo therapy for continued symptom control. -Pulmonology reccs: Hypercarbic Resp. Failure -- continue nocturnal noninvasive positive pressure ventilation Reported Hx of COPD -- unlikely given she is a lifetime non-smoker; continue bronchodilators (e.g. Anoro). Duonebs as needed for wheezing. Bronchiolitis -- Flutter valve, Hypertonic saline and Mucinex; vest therapy Unlikely that current episode is due to Mycobacterium scrofulaceum -- no abx for this necessary; Encouraged to f/u with her ID in [place]. (2) Chest pain: Plan: -Patient initially presented with substernal chest pain while coughing -No acute ST segment or T-wave changes noted on ECG, high sen trop WNL -Patient's pain has resolved after initial treatment in the ED -Likely musculoskeletal due to her cough -Will start with prn tylenol (3) DMII (diabetes mellitus, type 2): Plan: -Normally on NPH, will hold -Monitor BSG ACHS, goal is 110-140 -Will likely be hyperglycemic with systemic steroids -Will start 10 units lantus BID, CF 50, and CR 15 for now (4) Hypertension: Plan: -Initially hypertension with systolic BP in the 200's on arrival -S/P 10 mg hydralazine in the ED - BP now stable -Likely due to her distress for acute respiratory failure on arrival, she confirms she took her am losartan today (5) RADHA (obstructive sleep apnea): Plan: -HS CPAP ordered (6) Leukocytosis: Plan: - WBC on am labs 12.7 with neutrophil predominance - Patient has remained afebrile and clinically stable - Likely associated with systemic steroids administered Plan Admit to PCU/ Telemetry Diet: DMII, HH DVT Prophylaxis: Lovenox Admission and Anticipated Discharge Date Admission Date: July 18, 2023 Supervising Physician Co-Signing Physician Notes Attending Physician Supervision Note: I independently interviewed and examined the patient and verified the ivan history and physical, reviewed labs and image studies and agree with findings and care plan noted above. breathing better since after admission but still not at baseline. coughing + o/e - comfortable in bed. vitals noted. lungs - wheezing +, RRR Pulmonary consulted. Hypercapnic resp failure - resolved. nocturnal positive pressure ventilation. RADHA - on cpap. Reported h/o of COPD - presented with Wheezing - due to ? bronchiolitis. Bronchiolitis and Mild bronchiectasis - -Bronchodilator - Anoro. can use nebs as needed. -no systemic steroids. will add inhaled steroid since wheezing persists. -flutter valve, hypertonic saline and mucinex. PND - add nasal steroid and antihistamine. hx of Mycobacterium scrofulaceum - ID f/u outpatient. To provide CT image file to take home with her. 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 She was admitted due to acute respiratory failure with hypoxia. She was evaluated at bedside today and found to be clinically stable, awake, alert, oriented, and in no acute distress. She refers feeling better and having improved breathing and has been able to ambulate around her room using her walker without significant SOB. She denies other symptoms such as fevers, chills, weakness, malaise, etc. Review of Systems Review of Systems: As per HPI. Physical Exam Physical Exam: General: Alert. Oriented to person, time, and place. Afebrile. No acute distress. Cardiac: Regular rate and rhythm, no murmurs/rubs/gallops. Respiratory: Normal respiratory effort. Symmetrical chest rise. No respiratory distress. Abdomen: Soft, nontender, slightly distended. Bowel sounds present. Lower Extremities: No lower extremity edema or swelling. No deep calf pain. Jayce's negative bilaterally. Psych: Euthymic affect. Mood and affect congruence. Regular speech rate and content. Results & Data Results & Data Vital Signs (Past 12 Hours) Vital Signs Temp Pulse Pulse Resp BP Pulse Ox O2 Del Method 07/20/23 08:04 36.4 C L 57 L 18 161/78 H 94 Room Air 07/20/23 07:03 81 16 92 CPAP 07/20/23 07:03 81 16 92 07/20/23 03:34 36.6 C 74 16 154/72 H 96 CPAP 07/20/23 02:55 73 15 91 07/20/23 00:46 70 18 95 07/19/23 23:01 36.9 C 75 20 131/72 96 Room Air 07/19/23 22:30 78 07/19/23 22:30 Room Air O2 Flow Rate FiO2 07/20/23 08:04 07/20/23 07:03 07/20/23 07:03 21 07/20/23 03:34 07/20/23 02:55 2 07/20/23 00:46 2 07/19/23 23:01 07/19/23 22:30 07/19/23 22:30 Resident Activity Tracking Resident Involvement: Resident Care Provided Care Provided: Adult Hospital Medicine
[2023-07-20] MEDS ORDERED: FLUTICASONE HFA 110MCG INHALER INH ONE (12:27)
[2023-07-20] MEDS: FLUTICASONE FUROATE 200MCG 14 PUFFS/INHALER INH SCH (14:25)
[2023-07-20] MEDS ORDERED: PANTOprazole 40 MG TAB PO ONE (20:30)
[2023-07-20] MEDS: LEVOTHYROXINE SODIUM 88 MCG TABLET PO SCH (22:34)
[2023-07-20] MEDS: ENOXAPARIN INJ 40 MG/0.4 ML SYR SQ SCH (22:35)
[2023-07-20] MEDS ORDERED: CALCIUM CARBONATE 500 MG CHEWABLE TAB PO ONE (22:35)
[2023-07-21 06:50] LABS: Basophils # (auto) 0.05 K/uL (0.00-0.20); Basophils % (auto) 0.7 %; Eosinophils # (auto) 0.32 K/uL (0.00-0.50); Eosinophils % (auto) 4.4 %; Hematocrit (blood only) 35.8 % (37.0-47.0); Hemoglobin 11.7 g/dl (12.0-16.0); Immature Granulocytes # (auto) 0.03 K/uL (0.01-0.20); Immature Granulocytes % (auto) 0.4 %; Lymphocytes # (auto) 2.62 K/uL (1.20-3.40); Lymphocytes % (auto) 35.9 %; Mean Corpuscular Hgb Conc 32.7 g/dL (32.0-36.0); Mean Platelet Volume 12.3 fL (9.4-12.4); Monocytes # (auto) 0.79 K/uL (0.11-0.59); Monocytes % (auto) 10.8 %; Neutrophils # (auto) 3.48 K/uL (1.40-6.50); Neutrophils % (auto) 47.8 %; Platelet Count 251 K/uL (130-400); RDW Coefficient of Variation 14.8 % (11.5-14.5); RDW Standard Deviation 51.2 fL (36.4-46.3); Red Blood Count 3.77 M/uL (4.20-5.40); White Blood Count 7.29 K/ul (4.8-10.8)
[2023-07-21] MEDS: SODIUM CHLOR 7% 4 ML NEB NEB SCH ×2 (07:12→20:20)
[2023-07-21 07:20] LABS: BUN Creatinine Ratio 33.3 (10-20); Calcium 9.1 mg/dl (8.6-10.3); Creatinine Clr Calc Pharmacy 57.9 ml/min; Est GFR (African American) 77.3 ml/min; Est GFR (Non-African American) 66.7 ml/min; Potassium 4.3 mmol/L (3.5-5.1)
[2023-07-21] MEDS: FLUTICASONE FUROATE 200MCG 14 PUFFS/INHALER INH SCH (08:25)
[2023-07-21] MEDS: UMECLIDINIUM/VILANTEROL 62.5/25MCG 7 PUFFS/INHALER INH SCH (08:25)
[2023-07-21] MEDS: INSULIN ASPART PER UNIT CHARGE SC SCH ×4 (08:29→20:36)
[2023-07-21] MEDS: LANTUS PER UNIT CHARGE SC SCH (08:29)
[2023-07-21] MEDS: PANTOprazole 40 MG TAB PO SCH (08:30)
[2023-07-21] MEDS: ATORVASTATIN 10 MG TAB PO SCH (08:31)
[2023-07-21] MEDS: LOSARTAN POTASSIUM 25 MG TAB PO SCH (08:31)
[2023-07-21] MEDS: guaiFENesin 600 MG TABCR PO SCH ×2 (08:32→20:41)
[2023-07-21] MEDS: POLYETHYLENE (MIRALAX) 17 GM PACK PO SCH ×2 (08:32→20:41)
[2023-07-21] MEDS: ALBUT/IPRATROP 3MG/0.5MG NEB 3 ML VIAL NEB PRN ×2 (09:33→20:20)
--- NOTE | 2023-07-21 12:25 | Hospitalist Progress Note ---
Date of Service July 21, 2023 Assessment & Plan (1) Acute respiratory failure with hypoxia: Plan: -Currently hemodynamically stable at NC 1 lpm due to episode of SOB this morning that was not relieved by Anoro or Fluticasone inhalers or duoneb. - Will order speech therapy consult to r/o aspiration as a cause of her sudden SOB. -Pulmonology reccs: Hypercarbic Resp. Failure -- continue nocturnal noninvasive positive pressure ventilation Reported Hx of COPD -- unlikely given she is a lifetime non-smoker; continue bronchodilators (e.g. Anoro). Duonebs as needed for wheezing. Bronchiolitis -- Flutter valve, Hypertonic saline and Mucinex; vest therapy Unlikely that current episode is due to Mycobacterium scrofulaceum -- no abx for this necessary; Encouraged to f/u with her ID in [place]. - Will consider 2-step prior to discharge (2) Chest pain: Plan: -Patient initially presented with substernal chest pain while coughing -No acute ST segment or T-wave changes noted on ECG, high sen trop WNL -Patient's pain has resolved after initial treatment in the ED -Likely musculoskeletal due to her cough -Will start with prn tylenol (3) DMII (diabetes mellitus, type 2): Plan: -Normally on NPH, will hold -Monitor BSG ACHS, goal is 110-140 -Will likely be hyperglycemic with systemic steroids -Will start 10 units lantus BID, CF 50, and CR 15 for now (4) Hypertension: Plan: -Initially hypertension with systolic BP in the 200's on arrival -S/P 10 mg hydralazine in the ED - BP now stable -Likely due to her distress for acute respiratory failure on arrival, she confirms she took her am losartan today (5) RADHA (obstructive sleep apnea): Plan: -HS CPAP ordered (6) Leukocytosis: Plan: - WBC on am labs 12.7 with neutrophil predominance - Patient has remained afebrile and clinically stable - Likely associated with systemic steroids administered Plan Admit to PCU/ Telemetry Diet: DMII, HH DVT Prophylaxis: Lovenox Admission and Anticipated Discharge Date Admission Date: July 18, 2023 Supervising Physician Co-Signing Physician Notes Attending Physician Supervision Note: I independently interviewed and examined the patient and verified the ivan history and physical, reviewed labs and image studies and agree with findings and care plan noted above. became very short of breath after eating. concerned about trouble initiating swallow and choking on saliva. breathing did improve after duo nebs, adding oxygen. cough ongoing o/e - comfortable in bed. vitals noted. lungs - wheezing +, RRR Wheezing and shortness of breath with difficulty on swallowing - waxing and waning symptoms. received dose of IV steroid on admission. nebs/oxygen. -consult speech therapy for evaluation- discussed - will pursue with barium swallow. -continue PPI and nasal spray (07/20) for PND Reported h/o of COPD - presented with Wheezing - due to ? bronchiolitis. Bronchiolitis and Mild bronchiectasis - -Bronchodilator - Anoro. can use nebs as needed. -s/p one dose IV steroid in ED. no further need of systemic steroids per pul. I added inhaled steroid since wheezing persisted on 07/20. -Could reconsider adding systemic steroid if barium swallow neg and wheezing with shortness of breath persists. -flutter valve, hypertonic saline and mucinex. Hypercapnic resp failure on admission - resolved. nocturnal positive pressure ventilation. RADHA - on cpap. PND - added nasal steroid and antihistamine. hx of Mycobacterium scrofulaceum - ID f/u outpatient. To provide CT image file to take home with her. 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 She was admitted due to acute respiratory failure with hypoxia. She was evaluated at bedside today and found to be clinically stable, awake, alert, oriented, and in no acute distress. She reports that, since yesterday, she has been having SOB that began as mild last night, and then today she feels more SOB. Saturation at this time was 88-89%. After readjusting her pulse oximeter it increased to 94-95%. Patient had gotten inhalers 30-45 minutes prior but did not notice much effect over her SOB. Nebulizer therapy was ordered, but nurse states that this helped the patient some but not much. She also states the patient's saturation was ~86% for a short while. Has walked to the toilet earlier in the morning, but has not ambulated since due to concern of SOB. She denies other symptoms such as fevers, chills, weakness, malaise, etc. Review of Systems Review of Systems: As per HPI. Physical Exam Physical Exam: General: Alert. Oriented to person, time, and place. Afebrile. No acute distress. Cardiac: Regular rate and rhythm, no murmurs/rubs/gallops. Respiratory: No wheezing. Mild dyspnea. Symmetrical chest rise. No respiratory distress. Abdomen: Soft, nontender, slightly distended. Bowel sounds present. Lower Extremities: No lower extremity edema or swelling. No deep calf pain. Jayce's negative bilaterally. Psych: Euthymic affect. Mood and affect congruence. Regular speech rate and content. Results & Data Results & Data Vital Signs (Past 12 Hours) Vital Signs Temp Pulse Pulse Resp BP Pulse Ox O2 Del Method 07/21/23 11:51 36.4 C L 83 18 137/75 94 Nasal Cannula 07/21/23 09:34 20 96 Room Air 07/21/23 07:56 66 07/21/23 07:42 36.5 C 67 18 180/82 H 99 CPAP 07/21/23 07:12 19 96 CPAP 07/21/23 07:12 17 96 07/21/23 03:33 36.8 C 75 20 117/64 94 CPAP 07/21/23 03:16 81 25 H 94 O2 Flow Rate FiO2 07/21/23 11:51 1 07/21/23 09:34 07/21/23 07:56 07/21/23 07:42 07/21/23 07:12 2 07/21/23 07:12 2 07/21/23 03:33 07/21/23 03:16 21 Resident Activity Tracking Resident Involvement: Resident Care Provided Care Provided: Adult Hospital Medicine
[2023-07-21] MEDS: ENOXAPARIN INJ 40 MG/0.4 ML SYR SQ SCH (20:41)
[2023-07-21] MEDS: LEVOTHYROXINE SODIUM 88 MCG TABLET PO SCH (20:41)
[2023-07-22] MEDS: ACETAMINOPHEN 500 MG TAB PO PRN (00:06)
[2023-07-22] MEDS: SODIUM CHLOR 7% 4 ML NEB NEB SCH (07:16)
[2023-07-22] MEDS: INSULIN ASPART PER UNIT CHARGE SC SCH ×2 (08:59→12:44)
[2023-07-22] MEDS: UMECLIDINIUM/VILANTEROL 62.5/25MCG 7 PUFFS/INHALER INH SCH (09:37)
[2023-07-22] MEDS: FLUTICASONE FUROATE 200MCG 14 PUFFS/INHALER INH SCH (09:38)
--- NOTE | 2023-07-22 12:44 | Fluoroscopy Report ---
FL barium swallow CLINICAL HISTORY: assess for esophageal dysfunction COMPARISON STUDY: None. FLUOROSCOPY TIME: 57 seconds FLUOROSCOPY IMAGES: 82 Ka,r: 61.3 mGy FINDINGS: The patient swallowed barium without difficulty. The contours of the hypopharynx are within normal limits. The esophagus is normal in course and caliber. There is mild esophageal dysmotility. Moderate to severe gastroesophageal reflux demonstrated during the examination. No hiatus hernia. The barium tablet passed without difficulty. IMPRESSION: 1. Moderate to severe gastroesophageal reflux. 2. Mild esophageal dysmotility. ACT 112: Negative or not required by law. Electronically signed by: Eliud Garcia M.D. 07/22/2023 12:43 PM
--- NOTE | 2023-07-22 12:46 | Fluoroscopy Report ---
FL video swallow HISTORY: Assess for aspiration if needed after BA SW TECHNIQUE: Video fluoroscopic evaluation of swallowing was performed in the AP and lateral projection s by the speech pathology staff. The patient is fed nectar-thick and thin liquid barium, a barium coa bev wafer, and barium pudding. FLUOROSCOPY TIME: 1 minute and 36 seconds. A cine loop submitted. Ka,r: 6.1 mGy COMPARISON STUDY: None. FINDINGS: There is normal hyoid excursion and epiglottic deflection. No significant penetration or as piration identified. Swallowing function is within normal limits. IMPRESSION: 1. No aspiration identified. 2. Please see the speech pathologist report for detailed findings and recommendations. ACT 112: Negative or not required by law. Electronically signed by: Eliud Garcia M.D. 07/22/2023 12:45 PM
[2023-07-22] MEDS: ATORVASTATIN 10 MG TAB PO SCH (12:47)
[2023-07-22] MEDS: LOSARTAN POTASSIUM 25 MG TAB PO SCH (12:47)
[2023-07-22] MEDS: guaiFENesin 600 MG TABCR PO SCH (12:47)
[2023-07-22] MEDS: POLYETHYLENE (MIRALAX) 17 GM PACK PO SCH (12:47)
[2023-07-22] MEDS: PANTOprazole 40 MG TAB PO SCH (12:47)
--- NOTE | 2023-07-22 14:25 | Discharge Summary ---
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 In the ED she was noted to be hypertensive at 214/131 and hypoxic at 88% on RA but otherwise stable. Labs were significant for a neutrophile count of 7.17 VBG pH of 7.33 with pC02 of 58, and pO2 of 28, and negative full respiratory biofire. Chest xray was read as "1. Cardiomegaly with prominence of the pulmonary vasculature. Correlate clinically for evidence of mild fluid overload/congestive change. 2. Bibasilar airspace opacities as above. Pulmonary parenchymal findings were much better assessed on today's CT scan. CTA of the chest was read as "1. Motion compromised examination. 2. There is no evidence of pulmonary embolus in the main, lobar, or segmental pulmonary arteries. 3. Cardiomegaly 4. There is no lobar consolidation or pleural effusion. 5. There are numerous foci of tree-in-bud nodularity throughout the right lung as above with mild groundglass change. There are additional chronic appearing findings in the right middle lobe and lingula. The appearance favors a mild infectious/inflammatory pneumonitis. Some of this likely represents a chronic process such as atypical mycobacterial infection (GARRISON). Outpatient follow-up with pulmonology is recommended, as is a repeat chest CT in 3-4 months time to document resolution. 6. A 12 mm ovoid nodular structure in the right middle lobe likely represents an impacted bronchus. This should also be recessed at follow-up.". Prior to admission the patient was stabilized on 2L NC and given a dose of ceftriaxone, azithromycin, 125 mg IV Solu-Medrol, 500 mL NSS, and 10 mg IV hydralazine. At the time of the exam the patient was sitting in bed in no acute distress. When attempting to speak the patient has a significant cough and wheezing, the majority of the history was obtained from her 2 daughters sitting bedside and her EMR niranjan. They state that the patient had Covid 19 in May but had minimal respiratory symptoms and did not require hospitalization. She did complete a course of Paxlovid when she was found to be positive. She does follow with a Advertising Sales Manager in [place] and follows up yearly if not sooner. Regarding her COPD diagnosis; it is in her Pulmonology clinic notes. The patient was never a smoker herself but did have significant second hand smoke exposure as her father and brother were smokers. She and her one daughter flew into [place] 3 days ago, she had been feeling well. They state that she had a slight "tickle" in her throat but was without significant respiratory symptoms. She woke this am feeling well and was able to eat breakfast without issue. She took a nap in the late morning and woke around noon. Shortly after waking she experienced significant respiratory distress with wheezing, spastic cough, and inability to complete full sentences. These acute symptoms prompted ED evaluation. The patient did experience substernal chest pain when her cough was severe, this has resolved since receiving treatment in the ED. She does not use oxygen at home but does use HS CPAP. She feels somewhat improved compared to arrival but nowhere near her baseline. She denies recent travel outside the us or other sick contacts. She also denies recent fever, hemoptysis, abd pain, nausea, vomiting, diarrhea, dysuria, hematuria, melena, LE swelling, and recent trauma. She is a full code and would want her daughter to make medical decisions for her if she cannot make them herself. Please refer to Dr. Lala's attestation for any changes to the treatment plan Admission Exam Per Admitting Provider General: In no acute distress, stated age, ill appearing but non-toxic HEENT: Normocephalic, atraumatic, no scleral icterus, pupils around round, symmetrical, and reactive to light, moist mucus membranes, trachea midline, no thyromegaly Chest/Pulm: No respiratory distress at rest but with significant cough and wheezing when trying to speak, symmetrical chest expansion, expiratory wheezing noted througout Cardiac: RRR, no murmurs noted Abdomen: Negative for ascites and bruising, normoactive bowel sounds, soft, non- tender to palpation throughout Musculoskeletal: Symmetrical and without signs of acute trauma, upper and lower extremities with full ROM, no atrophy, spasticity, or flaccidity Extremities: Radial, dorsalis pedis, and posterior tibial pulses are intact and symmetrical, no edema noted in the BL LE's Skin: Warm, dry, no rashes , lesions, or scars noted Neuro: Alert and oriented to person, place, month, year, and president, no focal defects, no tremors noted Psych: No acute distress, calm and cooperative during the exam Principal Diagnosis Acute respiratory failure with hypoxia Discharge Exam General: Alert. Oriented to person, time, and place. Afebrile. No acute distress. Cardiac: Regular rate and rhythm, no murmurs/rubs/gallops. Respiratory: No wheezing. Symmetrical chest rise. No respiratory distress. Abdomen: Soft, nontender, slightly distended. Bowel sounds present. Lower Extremities: No lower extremity edema or swelling. No deep calf pain. Jayce's negative bilaterally. Psych: Euthymic affect. Mood and affect congruence. Regular speech rate and content. Discharge Data Allergies Allergy/AdvReac Type Severity Reaction Status Date / Time piroxicam Allergy Severe Angioedema Unverified 07/18/23 17:59 acetaminophen [From Percocet] AdvReac Severe Hallucinati Unverified 07/18/23 17:59 ng/Loopy oxycodone [From Percocet] AdvReac Severe Hallucinati Unverified 07/18/23 17:59 ng/Loopy gluten AdvReac Mild Unknown Verified 07/22/23 13:38 Consultations 07/18/23 17:35 ED Decision to Admit Stat 07/18/23 21:28 Consult Pulmonology Routine Ordered Studies 07/18/23 14:42 CT angio chest PE protocol Stat 07/22/23 15:57 FL barium swallow Routine 07/22/23 15:58 FL video swallow Routine Hospital Course (1) Acute respiratory failure with hypoxia: Resolved -Currently hemodynamically stable and breathing at room air -Speech therapy consulted and barium swallow/videofluoroscopic swallow done today: mod-severe GERD mild esophageal dysmotility no aspiration Speech therapy reccs: regular diet; avoid dry, thick, pasty, doughy foods (condiments to moisten food); fully upright for meals and for 30 minutes after meals; f/u with PCP for esophageal dysmotility and GERD management -Pulmonology reccs: Hypercarbic Resp. 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 - Patient saturating ~95% while walking down the king. (2) Chest pain: Resolved -Patient initially presented with substernal chest pain while coughing -No acute ST segment or T-wave changes noted on ECG, high sen trop WNL -Patient's pain has resolved after initial treatment in the ED -Likely musculoskeletal due to her cough (3) DMII (diabetes mellitus, type 2): Chronic, stable -May continue home insulin (4) Hypertension: Chronic, stable - BP now stable - May continue home dose (5) RADHA (obstructive sleep apnea): Chronic, stable - Continue CPAP after discharge (6) Leukocytosis: Resolved - WBC 7.29 yesterday Plan Patient evaluated at bedside today and found clinically and hemodynamically stable. She was able to ambulate the halls with adequate saturation. She was found to be stable and fit for discharge today. Will discharge with LABA/steroid inhaler and Tessalon perles. She was encouraged to follow up with her PCP in [place] once she returns to [place]. Total Time Total Time Spent Total Time Spent (In Minutes): <30 Discharge Plan Discharge Items Patient Disposition: Home - Self-Care Reason For Visit: ATYPICAL PNEUMONIA, HYPOXIA, HYPERTENSION Discharge Diagnosis: acute respiratory failure Activity: Per Instructions section Non-emergency contact: Primary Care Provider and Advertising Sales Manager Call non-emergency contact if: your symptoms worsen Follow-up/Referrals: PCP,NO [Primary Care Provider] - Diet: Carb Consistent or DM2 Addtl Attending Provider Instructions: You were admitted to the hospital for acute respiratory failure consequent of possible new upper respiratory infection combined with your pre-existing chronic mycobacterial infection. You were treated with anoro inhaler (bronchodilator), as needed duoneb nebulizers, and supportive care with mucinex. We will be discharging you with inhalers (one to take daily, as well as an albuterol rescue inhaler). We strongly advise you to make a follow up appointment with your PCP very soon, preferably in 1-2 weeks to ensure continued symptom improvement and resolution. A discharge summary will be sent to your primary care physician to ensure continuity of care. Please bring this discharge summary with you to your next office appointment so that your provider can review it at that time. Follow-up appointments: Make a follow-up appointment with your PCP within the next week. It is very important that you follow up with them shortly after discharge from the hospital. Keep all your follow-up appointments as already scheduled. If you cannot make an appointment, notify your provider. Medications: Your medication list has been reviewed and reconciled upon discharge to ensure accuracy and continuity of care. An updated list of all your medications is included with your hospital discharge paperwork. Please review this list closely, and make note of any changes. If you have any issues filling these prescriptions, please call [phone] and ask to leave a message for Dr. Mcnally. Take your medications as instructed; do not skip a dose of your medicines. Make sure all of your doctors know every medicine you are taking (including [id number] medicines, vitamins, and supplements). Call your primary care provider before taking any new medicines (including over- the-counter medicines, vitamins, and supplements), because some of these may interact with your current medications, or may make your symptoms worse. Tell your primary care provider if you cannot afford your medications. CONTACT YOUR PRIMARY CARE PROVIDER if you experience any of the following: Worsening of symptoms Fever, chills, or fatigue Difficulty following your treatment plan, or difficulty taking medications CALL 911 OR GO TO THE EMERGENCY DEPARTMENT if you experience any of the following: Sudden, severe abdominal pain or nausea/vomiting Severe chest pain, or chest pain that radiates (moves) to your jaw or arm Sudden, severe shortness of breath or difficulty breathing Thank you for allowing us to participate in your care. Pending Studies at Discharge: No Stand-Alone Forms: My [employer] (FIG), Smoking Cessation Medications and DC Order Prescriptions: New guaifenesin [Mucinex] 600 mg Tablet Extended Release 12hr 1,200 mg PO Q12 14 Days Qty: 56 0RF albuterol sulfate 90 mcg/actuation HFA aerosol inhaler 2 inh inhalation Q6H PRN (Reason: shortness of breath or wheezing) Qty: 6.7 0RF fluticasone propion-salmeterol [Advair HFA] 115-21 mcg/actuation HFA aerosol inhaler 2 inh inhalation BID Qty: 12 0RF Continued atorvastatin 10 mg tablet 10 mg PO QAM levothyroxine 88 mcg tablet 88 mcg PO HS modafinil 200 mg tablet 200 mg PO DAILY PRN (Reason: To stay awake) losartan 25 mg tablet 25 mg PO QAM Humulin N NPH U-100 Insulin 100 unit/mL suspension 0 unit SUBCUT BID Rx Instructions: Inject 13 units in the morning and 7 units at bedtime coenzyme Q10 [Co Q-10] 100 mg Capsule 100 mg PO QAM cholecalciferol (vitamin D3) [Vitamin D3] 50 mcg (2,000 unit) Tablet 50 mcg PO QAM Discharge Orders: Discharge Order (Routine); Ordered 07/22/23 Ordered By: Maura Emerson/Other Patient Handouts: Managing Type 2 Diabetes Admission Data Admit Date/Time: 07/18/23 18:46 Attending Provider: Gaurav Almodovar Admit Provider: Reagan Lala Primary Care Provider: PCP,VARGAS Other Providers: Reagan Lala; Tacos Urrutia Other Interventions: Discharge Summary Assessment (RN) Last Done: 07/22/23 14:35 Supervising Physician Co-Signing Physician Notes I personally examined the patient and verified all ivan points of history and exam, discussed case, and agree with decision making with Dr Mcnally feeling better and would like to leave the hospital vitals noted nad heent nc at mmm lungs coarse scattered rhonchi no rales or wheezes good effort no accessory muscles. ~95% on RA at rest, walked 2 labs around the unit no dyspnea no conversational dyspnea and was 97% on RA at the end of our walk acute hypoxic respiratory failure - likely acute bronchitis superimposed on chronic bronchiectasis - doing better. safe/stable for discharge. inhalers for now, return if any worsening. PCP/pulm on return home otherwise as above Resident Activity Tracking Resident Involvement: Resident Care Provided Care Provided: Adult Hospital Medicine
[2023-07-22] MEDS ORDERED: LANTUS PER UNIT CHARGE SC SCH (17:00)
--- NOTE | 2023-07-22 17:02 | Billing Data ---
Date of Service July 22, 2023 Coding Level of Care Code 65184 IN/OBS DISCH 30 MIN/LESS
--- NOTE | 2023-07-31 12:50 | Coding Query ---
CODING QUERY To promote full compliance with coding requirements relating to patient care, provider participation is requested in all cases of oracle solutions architect uncertainty. Please assist us with the question(s) below: Coding Question(s): Acute respiratory failure with hypoxia is documented by attending physician's throughout the record and the Discharge Summary. The Discharge Summary documents Acute respiratory failure with hypoxia under Principal Diagnosis, and the Discharge Summary also documents, "You were admitted to the hospital for acute respiratory failure", however, the Pulmonary Consultation on 07/19 and the Pulmonary Progress Note on 07/20 document, "She was never hypoxemic and was placed on oxygen", and document, "She did have evidence of acute on chronic hypercarbic respiratory failure and has improved currently", and the Hypercapnic respiratory failure is documented by attending as well, as on the 07/21 Progress Note with, "Hypercapnic resp failure on admission - resolved. nocturnal positive pressure ventilation". Due to conflicting documentation regarding Hypoxia from Pulmonary, please specify below, in your clinical opinion, to clarify the Respiratory Failure diagnosis: ( x) Acute Respiratory Failure with Hypoxia, as well as Acute on Chronic Hypercarbic Respiratory Failure ( ) Acute on Chronic Hypercarbic Respiratory Failure only. Hypoxia is ruled- out. ( ) Other: Please Specify Physician's Response(s): Thank you Odalis Soria Principal Diagnosis: "that condition established after study, to be chiefly responsible for occasioning the admission of the patient to the hospital for care." Co-Existing Principal Diagnosis: "when two or more diagnoses equally meet the criteria for principal diagnosis as determined by the circumstances of admission, diagnostic work up, and/or therapy provided, and the Alphabetic Index, Tabular List, or another coding guideline does not provide sequencing direction, any one of the diagnoses may be sequenced first." "When the physician has documented what appears to be a current diagnosis in the body of the record, but has not included the diagnosis in the final diagnostic statement, the physician should be asked whether the diagnosis should be added." (Source Coding Clinic 2 QTR90. p3-4) STEFANIA
== END 2023-07-22 17:30 | disposition home or self-care (01) | DRG 189 ==
LOC: SUATTDRO → ED 14:37 → SUATTDRO 18:46 → 2S 18:46